=== PATIENT | female | born 1935 | race Caucasian/White ===

== ENCOUNTER 2018-12-22 11:35 | Emergency (ER) | payer MEDICARE ==
[~2018-12-22] VITALS: Ht 152.4 cm; Wt 110.0 kg
[2018-12-22 12:05] LABS: BASOPHILS # (AUTO) 0.1 X10'3 (0-0.2); BASOPHILS % (AUTO) 0.9 % (0-1); EOSINOPHILS % (AUTO) 0.1 % (0-6); HEMATOCRIT 42.9 % (35.0-45.0); HEMOGLOBIN 14.2 g/dl (12.0-16.0); LYMPHOCYTES # (AUTO) 0.8 X10'3 (1.1-4.8); LYMPHOCYTES % (AUTO) 10.9 % (21-51); MEAN CORPUSCULAR HEMOGLOBIN 28.5 PG (27.0-31.0); MEAN CORPUSCULAR HGB CONC 33.1 g/dL (33.0-36.5); MEAN CORPUSCULAR VOLUME 86.1 FL (78-98); MEAN PLATELET VOLUME 7.3 FL (7.4-10.4); MONOCYTES # (AUTO) 0.6 X10'3 (0-0.9); MONOCYTES % (AUTO) 7.8 % (2-12); NEUTROPHILS # (AUTO) 5.9 X10'3 (1.8-7.7); NEUTROPHILS % (AUTO) 80.3 % (42-75); PLATELET COUNT 201 X10'3 (140-440); RED BLOOD COUNT 4.99 X10'6 (4.20-5.60); RED CELL DISTRIBUTION WIDTH 14.6 % (11.5-14.5); WHITE BLOOD COUNT 7.4 X10'3 (4.5-11.0)
[2018-12-22] MEDS ORDERED: normal saline 1000ML IV soln IVB ONE (12:05)
[2018-12-22] MEDS ORDERED: ondansetron/PF 4mg/2ml inj IV ONE (12:05)
[2018-12-22 12:16] LABS: INR 1.1 INR; PROTHROMBIN TIME 11.3 SECONDS (9.0-12.0)
[2018-12-22 12:18] LABS: ALANINE AMINOTRANSFERASE 20 U/L (12-78); ALBUMIN 3.6 G/DL (3.4-5.0); ALBUMIN/GLOBULIN RATIO 0.9 (1.1-1.5); ALKALINE PHOSPHATASE 68 IU/L (46-116); ANION GAP 11 (8-16); ASPARTATE AMINO TRANSFERASE 18 U/L (10-37); BILIRUBIN,TOTAL 1.4 MG/DL (0.1-1.0); BLOOD UREA NITROGEN 16 MG/DL (7-18); CALCIUM 9.2 MG/DL (8.5-10.1); CHLORIDE 100 MMOL/L (99-107); CREATININE 0.94 MG/DL (0.40-0.90); GLUCOSE 244 MG/DL (70-104); POTASSIUM 4.5 MMOL/L (3.5-5.1); SODIUM 135 MMOL/L (135-145); TOTAL CARBON DIOXIDE 24.4 MMOL/L (24-32); TOTAL PROTEIN 7.8 G/DL (6.4-8.2); eGFR 57 ML/MIN
[2018-12-22] MEDS ORDERED: morphine 4 MG/ML inj SYRINge IV ONE ×2 (12:25→13:20)
--- NOTE | 2018-12-22 13:02 | NUR ---
BACK FROM CT, FLUID BOLUS RESUMED.
--- NOTE | 2018-12-22 13:07 | NUR ---
PT STATED UNABLE TO GIVE UA AT THIS TIME. EDUCATED ABOUT IMPORTANCE.
--- NOTE | 2018-12-22 13:17 | NUR ---
DR VO INFORMED PT STILL HAVING PAIN, RECEIVED VERBAL ORDERS FOR 4 MG IV MORPHINE AND 15 MG IV TORADOL ONCE NOW.
[2018-12-22] MEDS ORDERED: ketorolac tromethamine 15mg/ml inj. IV ONE (13:20)
[2018-12-22 13:34] VITALS: BP 159/65
[2018-12-22] MEDS ORDERED: proCHLORperazine 10 MG/2 ml inj IV ONE (13:40)
--- NOTE | 2018-12-22 13:40 | NUR ---
PT REPORTS 8/10 PAIN ADN STILL HAVING SOME NAUSEA, DR VO AT BEDSIDE WHEM MEDICATING PT WITH TORADOL AND WILL PUT ORDERS FOR OTHER NAUSEA MED, PT WANTS TO TRY TORADOL FIRST AND THEN HAVE OTHER DOSE OF MORPHINE IF PAIN PERSISTS.
[2018-12-22 13:47] LABS: CLARITY,URINE CLOUDY (Clear); COLOR,URINE YELLOW (Yellow); GLUCOSE, URINE 250 mg/dl (Neg); KETONES,URINE >=80 mg/dl (Neg); LEUKOCYTE ESTERASE ,URINE NEGATIVE (Neg); NITRITES, URINE NEGATIVE (Neg); OCCULT BLOOD,URINE LARGE (Neg); PROTEIN,URINE 30 mg/dl (Neg); UROBILINOGEN,URINE 0.2 E.U/dL (0.2-1.0)
[2018-12-22 13:50] LABS: UA COLLECTION TYPE CLN CATCH MIDSTREAM
[2018-12-22 13:53] LABS: MUCUS STRANDS MANY /LPF (Neg); SQUAMOUS EPITHELIAL CELL,UR MANY /LPF (FEW)
[2018-12-22 13:54] LABS: RBC,URINE 50-100 /HPF (0-2); WBC,URINE 0-4 /HPF (0-4)
[2018-12-22 13:55] LABS: BACTERIA,URINE FEW /HPF (Neg); TRANSITIONAL EPI CELLS,URINE FEW /HPF
[2018-12-22] MEDS ORDERED: ONDA4TAB12 PO (14:36)
[2018-12-22] MEDS ORDERED: HYDR-4383 PO (14:36)
== END 2018-12-22 15:15 | disposition home or self-care (01) ==
LOC: ER 11:36
DX: N13.2 Hydronephrosis with renal and ureteral calculous obstruction (principal); E86.0 Dehydration; R19.7 Diarrhea, unspecified; Z90.49 Acquired absence of other specified parts of digestive tract; Z98.890 Other specified postprocedural states; Z88.0 Allergy status to penicillin; Z88.2 Allergy status to sulfonamides; Z79.899 Other long term (current) drug therapy
CPT/HCPCS: 36415; 74176; 80053; 81001; 83605; 83690; 84145; 85025; 85610; 87040; 96361; 96374; 96375; 99284; J0780; J1885; J2270; J2405; J7030

== ENCOUNTER 2023-08-03 13:46 | Inpatient (IN) | payer MEDICARE, MEDICAID ==
[~2023-08-03] VITALS: Ht 152.4 cm; Wt 96.8 kg
[~2023-08-03 13:46] MED LIST: HYDR-4383 PO; ONDA4TAB12 PO
[2023-08-03 14:28] LABS: BASOPHILS # (AUTO) 0.1 X10'3 (0-0.2); BASOPHILS % (AUTO) 0.7 % (0-1); EOSINOPHILS # (AUTO) 0.1 X10'3 (0-0.9); EOSINOPHILS % (AUTO) 1.8 % (0-6); HEMATOCRIT 40.2 % (35.0-45.0); HEMOGLOBIN 13.1 g/dl (12.0-16.0); LYMPHOCYTES # (AUTO) 1.8 X10'3 (1.1-4.8); LYMPHOCYTES % (AUTO) 25.4 % (21-51); MEAN CORPUSCULAR HEMOGLOBIN 28.5 PG (27.0-31.0); MEAN CORPUSCULAR HGB CONC 32.5 g/dL (33.0-36.5); MEAN CORPUSCULAR VOLUME 87.9 FL (78-98); MEAN PLATELET VOLUME 7.8 FL (7.4-10.4); MONOCYTES # (AUTO) 0.4 X10'3 (0-0.9); MONOCYTES % (AUTO) 5.6 % (2-12); NEUTROPHILS # (AUTO) 4.7 X10'3 (1.8-7.7); NEUTROPHILS % (AUTO) 66.5 % (42-75); PLATELET COUNT 253 X10'3 (140-440); RED BLOOD COUNT 4.58 X10'6 (4.20-5.60); RED CELL DISTRIBUTION WIDTH 14.8 % (11.5-14.5); WHITE BLOOD COUNT 7.1 X10'3 (4.5-11.0)
[2023-08-03 14:42] LABS: ALANINE AMINOTRANSFERASE 8 U/L (12-78); ALBUMIN 3.3 G/DL (3.4-5.0); ALBUMIN/GLOBULIN RATIO 0.9 (1.1-1.5); ALKALINE PHOSPHATASE 76 IU/L (46-116); ANION GAP 7 (8-16); ASPARTATE AMINO TRANSFERASE 12 U/L (10-37); BILIRUBIN,TOTAL 0.8 MG/DL (0.1-1.0); BLOOD UREA NITROGEN 15 MG/DL (7-18); BUN/CREATININE RATIO 20.8 (10.0-20.0); CHLORIDE 105 MMOL/L (99-107); CREATININE 0.72 MG/DL (0.40-0.90); GLUCOSE 230 MG/DL (70-104); POTASSIUM 3.8 MMOL/L (3.5-5.1); SODIUM 143 MMOL/L (135-145); eCRCL 40 ML/MIN; eGFR 77 ML/MIN
[2023-08-03 14:51] LABS: MAGNESIUM 1.6 MG/DL (1.5-2.4); PRO BRAIN NATRIURETIC PEPTIDE 1024 PG/ML (0-450)
[2023-08-03] MEDS ORDERED: metoprolol tartrate 1mg/ml inj IV PRN (15:30)
[2023-08-03] MEDS ORDERED: acetaminophen 325mg tablet PO PRN ×2 (15:30)
[2023-08-03] MEDS ORDERED: potassium Cl 20 mEq SR tablet PO PRN ×2 (15:30)
[2023-08-03] MEDS ORDERED: aminophylline 250mg/10ml inj. IV PRN (15:30)
[2023-08-03] MEDS ORDERED: regadenoson 0.4mg/5ml syringe IV PRN (15:30)
[2023-08-03] MEDS ORDERED: HYDROcodone/acetaminophen 5mg/325mg tablet PO PRN (15:30)
[2023-08-03] MEDS ORDERED: potassium Cl 40MEQ/1/2NS 520ml 520 ML IV PRN (15:30)
[2023-08-03] MEDS ORDERED: magnesium Cl slow-release 64mg tablet PO PRN (15:30)
[2023-08-03] MEDS ORDERED: morphine 2 MG/ML inj. syringe IV PRN ×2 (15:30)
[2023-08-03] MEDS ORDERED: nitroGLYCERIN 0.4mg SUBLingual tab SL PRN (15:30)
[2023-08-03] MEDS ORDERED: magnesium 2GM in 50ml NS 50 ML IV PRN (15:30)
[2023-08-03] MEDS ORDERED: HYDROcodone/acetaminophen 10/325mg tab PO PRN (15:30)
[2023-08-03] MEDS ORDERED: magnesium 4gm in 100ml NS 100 ML IV PRN (15:30)
[2023-08-03] MEDS ORDERED: iohexol 350MG/ML 100ml bottle IV ONE (15:33)
[2023-08-03] MEDS: normal saline 1000ml 1,000 ML IV SCH (15:50)
--- NOTE | 2023-08-03 16:37 | NUR ---
stress test in am. npo after mn, no caffeine
[2023-08-03] MEDS ORDERED: PIOG30TA71 PO (18:01)
[2023-08-03] MEDS ORDERED: LEVO88TA7 PO (18:01)
[2023-08-03] MEDS ORDERED: ATOR10TA70 PO (18:01)
[2023-08-03] MEDS ORDERED: LISI30TA4 PO (18:01)
[2023-08-03] MEDS ORDERED: NITR0.4T48 (18:01)
[2023-08-03] MEDS: enoxaparin 40mg/0.4ml syringe SQ SCH (20:44)
[2023-08-03 20:55] VITALS: BP_SYST 140; BP_SYST 171; BP_DIAS 57; BP_DIAS 70; PULSE 70; RESP 14; TEMP 97.2; O2SAT 95
[2023-08-03] MEDS ORDERED: temazepam 15mg capsule PO PRN (21:00)
[2023-08-03 22:00] VITALS: BP 157/62; PULSE 74; RESP 12; TEMP 97; O2SAT 97
[2023-08-03 22:51] VITALS: RESP 14; O2SAT 94
[2023-08-04] VITALS (20 sets, daily range): BP systolic 132–173; BP diastolic 6–79; PULSE 69–93; RESP 12–24; TEMP 97–97.7; O2SAT 97–100
--- NOTE | 2023-08-04 06:26 | NUR ---
Problems reprioritized. Patient report given, questions answered & plan of care reviewed with
--- NOTE | 2023-08-04 06:58 | NUR ---
Patient in room PCU 3027. I have received report from Natalie PAZ and had the opportunity to ask questions and assume patient care.
[2023-08-04 08:00] LABS: BASOPHILS # (AUTO) 0.1 X10'3 (0-0.2); BASOPHILS % (AUTO) 1.2 % (0-1); EOSINOPHILS # (AUTO) 0.2 X10'3 (0-0.9); EOSINOPHILS % (AUTO) 2.8 % (0-6); HEMATOCRIT 38.5 % (35.0-45.0); HEMOGLOBIN 12.7 g/dl (12.0-16.0); LYMPHOCYTES # (AUTO) 1.7 X10'3 (1.1-4.8); LYMPHOCYTES % (AUTO) 26.5 % (21-51); MEAN CORPUSCULAR HEMOGLOBIN 28.8 PG (27.0-31.0); MEAN CORPUSCULAR VOLUME 87.4 FL (78-98); MEAN PLATELET VOLUME 8.7 FL (7.4-10.4); MONOCYTES # (AUTO) 0.5 X10'3 (0-0.9); MONOCYTES % (AUTO) 7.7 % (2-12); NEUTROPHILS # (AUTO) 3.9 X10'3 (1.8-7.7); NEUTROPHILS % (AUTO) 61.8 % (42-75); PLATELET COUNT 227 X10'3 (140-440); RED BLOOD COUNT 4.41 X10'6 (4.20-5.60); RED CELL DISTRIBUTION WIDTH 14.7 % (11.5-14.5)
[2023-08-04] MEDS ORDERED: hydrocortisone sod succ/PF 250mg/2ml inj. IV ONE (11:35)
[2023-08-04] MEDS ORDERED: prednisone 10mg tablet PO STA (11:35)
--- NOTE | 2023-08-04 11:40 | NUR ---
ORDERS FOR 60MG PO PREDNISONE STAT, 125MG IV HYDROCORTISONE, NORMAL SALINE AT 100ML/HR AND HEART CATH PUT IN PER DR. VERDE. Addendum: 08/04/23 at 1141 by Airam Staley RN PATIENT ALSO HAS ALLERGY TO IODINE AND ADDED THAT TO THE ALLERGIES.
[2023-08-04] MEDS ORDERED: hydrocortisone sod succ/PF 100mg/2ml inj. IV ONE (11:50)
[2023-08-04] MEDS ORDERED: atorvastatin 10mg tablet PO SCH (12:04)
[2023-08-04] MEDS ORDERED: lisinopril 10 MG tablet PO SCH (12:04)
[2023-08-04] MEDS: levoTHYROXINE 88mcg tablet PO SCH (12:20)
[2023-08-04 13:00] LABS: ALANINE AMINOTRANSFERASE 11 U/L (12-78); ALBUMIN 3.3 G/DL (3.4-5.0); ALBUMIN/GLOBULIN RATIO 0.9 (1.1-1.5); ALKALINE PHOSPHATASE 70 IU/L (46-116); ANION GAP 8 (8-16); ASPARTATE AMINO TRANSFERASE 12 U/L (10-37); BILIRUBIN,TOTAL 1.4 MG/DL (0.1-1.0); BLOOD UREA NITROGEN 9 MG/DL (7-18); BUN/CREATININE RATIO 13.6 (10.0-20.0); CALCIUM 8.8 MG/DL (8.5-10.1); CHLORIDE 105 MMOL/L (99-107); CREATININE 0.66 MG/DL (0.40-0.90); GLUCOSE 156 MG/DL (70-104); POTASSIUM 3.5 MMOL/L (3.5-5.1); SODIUM 140 MMOL/L (135-145); TOTAL CARBON DIOXIDE 27.5 MMOL/L (24-32); TOTAL PROTEIN 7.1 G/DL (6.4-8.2); eCRCL 43 ML/MIN; eGFR 85 ML/MIN
[2023-08-04] MEDS ORDERED: LIDOcaine 1% (10mg/ml)w/preservative inj. 20ml MDV ONE (15:17)
[2023-08-04] MEDS ORDERED: iohexol 350MG/ML 100ml bottle IV ONE ×2 (15:17→16:57)
[2023-08-04] MEDS ORDERED: fentaNYL/PF 50MCG/1 ML 2ML syringe ONE (15:17)
[2023-08-04] MEDS ORDERED: iohexol 350 MG/ML 50ML vial IV ONE ×3 (15:17→17:20)
[2023-08-04] MEDS ORDERED: midazolam 1 mg/ML 2ml injection ONE ×2 (15:17→17:05)
[2023-08-04] MEDS ORDERED: diphenhydrAMINE 50 mg/ml inj ONE (15:52)
[2023-08-04] MEDS ORDERED: hydrALAZINE 20mg/ml inj. IV ONE (16:04)
[2023-08-04] MEDS ORDERED: nitroGLYCERIN 500mcg/5mL D5W 0 ML IV ONE (16:06)
--- NOTE | 2023-08-04 16:20 | NUR ---
ORDERS FOR RESUSCITATION STATUS CHANGED FROM DNR TO FULL CODE PER DR. VERDE.
[2023-08-04] MEDS ORDERED: heparin 25,000 UNIT/250ml bag 250 ML IV ONE (16:35)
[2023-08-04] MEDS ORDERED: heparin 1,000unit/ml 10ml vial 10 ML ONE (16:35)
[2023-08-04] MEDS ORDERED: heparin 1,000 UNITS/NS 500ml 500 ML ONE (17:03)
[2023-08-04] MEDS ORDERED: ondansetron/PF 4mg/2ml inj ONE (17:18)
[2023-08-04] MEDS ORDERED: ticagrelor 90mg tablet ONE (17:24)
[2023-08-04] MEDS: normal saline 1000ml 1,000 ML IV SCH (17:38)
[2023-08-04] MEDS ORDERED: HYDROmorphone 1 mg/ml syringe ONE (17:47)
--- NOTE | 2023-08-04 17:53 | NUR ---
patient went for stress test and cardiac cath. Per report taken to ICU following procedure
[2023-08-04] MEDS ORDERED: aspirin 325mg tablet ONE (17:55)
[2023-08-04] MEDS ORDERED: proCHLORperazine 10 MG/2 ml inj IV PRN (19:15)
[2023-08-04] MEDS ORDERED: HYDROcodone/acetaminophen 10/325mg tab PO PRN (19:15)
[2023-08-04] MEDS ORDERED: nitroGLYCERIN 0.4mg SUBLingual tab SL PRN (19:15)
[2023-08-04] MEDS ORDERED: OXAZEpam 15mg capsule PO PRN (19:15)
[2023-08-04] MEDS ORDERED: acetaminophen 325mg tablet PO PRN ×2 (19:15)
[2023-08-04] MEDS ORDERED: magnesium hydroxide 30ml (MOM) UD suspension PO PRN (19:15)
[2023-08-04] MEDS ORDERED: cyclobenzaprine 10mg tablet PO PRN (19:15)
[2023-08-04] MEDS ORDERED: HYDROmorphone inj. 0.5 MG/0.5 ML DISP.SYRIN IV PRN (19:20)
--- NOTE | 2023-08-04 19:40 | NUR ---
I have received report and assumed care of pt, pt Pt placed on monitor assessment complete, FemoStop in place to right groin, no hematoma noted bruising to left lateral hip. family at bedside.
[2023-08-04] MEDS: ticagrelor 90mg tablet PO SCH (20:32)
[2023-08-04] MEDS: enoxaparin 40mg/0.4ml syringe SQ SCH (20:33)
[2023-08-04] MEDS: HYDROcodone/acetaminophen 10/325mg tab PO PRN (20:33)
[2023-08-04] MEDS: docusate sod 100mg capsule PO SCH (20:34)
[2023-08-04] MEDS: metoprolol tartrate 12.5mg (1/2 tablet) PO SCH (20:37)
[2023-08-04] MEDS: ondansetron/PF 4mg/2ml inj IV PRN (21:13)
--- NOTE | 2023-08-04 21:45 | NUR ---
flexeril given for back cramping, norco given for genrised pain.
[2023-08-05] VITALS (24 sets, daily range): BP systolic 93–176; BP diastolic 35–74; PULSE 59–77; RESP 10–21; TEMP 99; O2SAT 86–98
[2023-08-05] MEDS: normal saline 1000ml 1,000 ML IV SCH ×2 (03:38→13:38)
--- NOTE | 2023-08-05 04:02 | NUR ---
FemoStop removed groin area bruised but no hematoma noted
[2023-08-05] MEDS: ondansetron/PF 4mg/2ml inj IV PRN (04:59)
[2023-08-05] MEDS: HYDROcodone/acetaminophen 10/325mg tab PO PRN (05:00)
[2023-08-05 06:22] LABS: BASOPHILS % (AUTO) 0.2 % (0-1); EOSINOPHILS % (AUTO) 0 % (0-6); HEMATOCRIT 37.7 % (35.0-45.0); HEMOGLOBIN 12.4 g/dl (12.0-16.0); LYMPHOCYTES # (AUTO) 0.7 X10'3 (1.1-4.8); LYMPHOCYTES % (AUTO) 6.9 % (21-51); MEAN CORPUSCULAR HEMOGLOBIN 28.9 PG (27.0-31.0); MEAN CORPUSCULAR VOLUME 87.7 FL (78-98); MONOCYTES # (AUTO) 0.8 X10'3 (0-0.9); MONOCYTES % (AUTO) 7.5 % (2-12); NEUTROPHILS # (AUTO) 9.1 X10'3 (1.8-7.7); NEUTROPHILS % (AUTO) 85.4 % (42-75); PLATELET COUNT 267 X10'3 (140-440); RED BLOOD COUNT 4.29 X10'6 (4.20-5.60); RED CELL DISTRIBUTION WIDTH 14.8 % (11.5-14.5); WHITE BLOOD COUNT 10.6 X10'3 (4.5-11.0)
[2023-08-05 06:41] LABS: ALANINE AMINOTRANSFERASE 14 U/L (12-78); ALBUMIN 3.3 G/DL (3.4-5.0); ALBUMIN/GLOBULIN RATIO 0.9 (1.1-1.5); ALKALINE PHOSPHATASE 67 IU/L (46-116); ANION GAP 7 (8-16); ASPARTATE AMINO TRANSFERASE 16 U/L (10-37); BILIRUBIN,TOTAL 1.5 MG/DL (0.1-1.0); BLOOD UREA NITROGEN 15 MG/DL (7-18); BUN/CREATININE RATIO 17.6 (10.0-20.0); CALCIUM 8.5 MG/DL (8.5-10.1); CHLORIDE 105 MMOL/L (99-107); CREATININE 0.85 MG/DL (0.40-0.90); GLUCOSE 195 MG/DL (70-104); POTASSIUM 3.6 MMOL/L (3.5-5.1); SODIUM 139 MMOL/L (135-145); TOTAL CARBON DIOXIDE 26.9 MMOL/L (24-32); TOTAL PROTEIN 6.9 G/DL (6.4-8.2); eCRCL 33 ML/MIN; eGFR 63 ML/MIN
[2023-08-05] MEDS: levoTHYROXINE 88mcg tablet PO SCH (07:38)
[2023-08-05] MEDS: aspirin 81mg tab.chew PO SCH (08:50)
[2023-08-05] MEDS: ticagrelor 90mg tablet PO SCH ×2 (08:51→20:17)
[2023-08-05] MEDS: docusate sod 100mg capsule PO SCH ×2 (08:52→20:17)
[2023-08-05] MEDS: lisinopril 10 MG tablet PO SCH (08:52)
[2023-08-05] MEDS: metoprolol tartrate 12.5mg (1/2 tablet) PO SCH ×2 (08:52→20:19)
[2023-08-05] MEDS: atorvastatin 20mg tablet PO SCH (08:53)
[2023-08-05] MEDS: enoxaparin 40mg/0.4ml syringe SQ SCH (20:20)
[2023-08-05] MEDS ORDERED: insulin Lispro (HumaLOG) vial - multi-dose SQ SCH (20:40)
[2023-08-05] MEDS ORDERED: insulin glargine (Lantus) pen - multi-dose SQ SCH (21:00)
[2023-08-06] VITALS (9 sets, daily range): BP systolic 105–158; BP diastolic 40–63; PULSE 59–77; RESP 12–21; TEMP 97.7–98.1; O2SAT 93–100
--- NOTE | 2023-08-06 05:00 | NUR ---
Patient in room PCU 3024. I have received report from Nathaly AUTOM[employer] PRESS OPERATOR and had the opportunity to ask questions and assume patient care.
--- NOTE | 2023-08-06 05:00 | NUR ---
Report called to [place] on Tele. Opportunity for questions provided, all questions answered. Verbalizes understanding of info given. Pt transferred to Tele with monitor, RN, and IV, with all belongings
--- NOTE | 2023-08-06 06:00 | NUR ---
Problems reprioritized. Patient report given, questions answered & plan of care reviewed with Kee PAZ
--- NOTE | 2023-08-06 06:30 | NUR ---
Patient in room PCU 3024. I have received report from Aleta PAZ and had the opportunity to ask questions and assume patient care.
[2023-08-06 07:32] LABS: BASOPHILS % (AUTO) 0.4 % (0-1); EOSINOPHILS # (AUTO) 0.2 X10'3 (0-0.9); HEMATOCRIT 32.3 % (35.0-45.0); HEMOGLOBIN 10.8 g/dl (12.0-16.0); LYMPHOCYTES # (AUTO) 1.6 X10'3 (1.1-4.8); LYMPHOCYTES % (AUTO) 17.2 % (21-51); MEAN CORPUSCULAR HEMOGLOBIN 29.2 PG (27.0-31.0); MEAN CORPUSCULAR HGB CONC 33.4 g/dL (33.0-36.5); MEAN CORPUSCULAR VOLUME 87.4 FL (78-98); MEAN PLATELET VOLUME 7.9 FL (7.4-10.4); MONOCYTES # (AUTO) 0.8 X10'3 (0-0.9); MONOCYTES % (AUTO) 8.6 % (2-12); NEUTROPHILS # (AUTO) 6.5 X10'3 (1.8-7.7); NEUTROPHILS % (AUTO) 71.8 % (42-75); PLATELET COUNT 193 X10'3 (140-440); RED CELL DISTRIBUTION WIDTH 14.6 % (11.5-14.5); WHITE BLOOD COUNT 9.1 X10'3 (4.5-11.0)
[2023-08-06 07:49] LABS: ALANINE AMINOTRANSFERASE 13 U/L (12-78); ALBUMIN 2.9 G/DL (3.4-5.0); ALBUMIN/GLOBULIN RATIO 0.9 (1.1-1.5); ALKALINE PHOSPHATASE 58 IU/L (46-116); ANION GAP 7 (8-16); ASPARTATE AMINO TRANSFERASE 17 U/L (10-37); BILIRUBIN,TOTAL 1.6 MG/DL (0.1-1.0); BLOOD UREA NITROGEN 24 MG/DL (7-18); BUN/CREATININE RATIO 28.9 (10.0-20.0); CALCIUM 8.4 MG/DL (8.5-10.1); CHLORIDE 105 MMOL/L (99-107); CREATININE 0.83 MG/DL (0.40-0.90); GLUCOSE 133 MG/DL (70-104); POTASSIUM 3.4 MMOL/L (3.5-5.1); SODIUM 139 MMOL/L (135-145); TOTAL CARBON DIOXIDE 26.8 MMOL/L (24-32); TOTAL PROTEIN 6.1 G/DL (6.4-8.2); eCRCL 34 ML/MIN; eGFR 65 ML/MIN
[2023-08-06] MEDS: docusate sod 100mg capsule PO SCH (08:00)
--- NOTE | 2023-08-06 08:35 | NUR ---
Per EMR pt with T2DM, well controlled for age with A1c 7.0%. DM education not warranted at this time. Will continue to follow. Addendum: 08/06/23 at [address] Amended: Links added.
[2023-08-06] MEDS: levoTHYROXINE 88mcg tablet PO SCH (08:45)
[2023-08-06] MEDS: metoprolol tartrate 12.5mg (1/2 tablet) PO SCH (08:46)
[2023-08-06] MEDS: aspirin 81mg tab.chew PO SCH (08:46)
[2023-08-06] MEDS: atorvastatin 20mg tablet PO SCH (08:47)
[2023-08-06] MEDS: ticagrelor 90mg tablet PO SCH (08:47)
[2023-08-06] MEDS: lisinopril 10 MG tablet PO SCH (08:48)
--- NOTE | 2023-08-06 13:31 | NUR ---
PAGER ID: [phone] MESSAGE: Lali [id number], Dr Duncan came by to the floor and asked about pt and seemingly said she can be good to go. [phone]
[2023-08-06] MEDS ORDERED: ASPI81TA53 PO (14:00)
[2023-08-06] MEDS ORDERED: LOP12.5T PO (14:00)
[2023-08-06] MEDS ORDERED: TICA90TA PO (14:00)
[2023-08-06] MEDS ORDERED: ATOR20TA66 PO (14:00)
[2023-08-06] MEDS ORDERED: LISI10TA27 PO (14:00)
[2023-08-06] MEDS ORDERED: METF-1203 PO (14:01)
--- NOTE | 2023-08-06 16:59 | NUR ---
Pt was DC'd as per Dr's orders. Pt was unhooked from all IV and tele. Pt was educated at bedside along with family, all questions were answered. Pt will make follow up appointments and pt had family bring their blood thinner for their placed stent. Pt gathered all belongings and took with them. Pt was wheeled down to lobby in wheelchair by staff. Pt left in a private vehicle destined for home.
== END 2023-08-06 16:50 | disposition home or self-care (01) | DRG 321 ==
LOC: ER 13:47 → ED HOLD 15:35 → PCU 3S 21:00 → ICU 2S 08-04 17:00 → PCU 3S 08-06 05:10
PROVIDERS: ADMIT Internal Medicine; ATTEND Internal Medicine
PROC: B32T1ZZ Computerized Tomography (CT Scan) of Left Pulmonary Artery using Low Osmolar Contrast (ICD-10-PCS; 2023-08-03)
PROC: B3201ZZ Computerized Tomography (CT Scan) of Thoracic Aorta using Low Osmolar Contrast (ICD-10-PCS; 2023-08-03)
PROC: B32S1ZZ Computerized Tomography (CT Scan) of Right Pulmonary Artery using Low Osmolar Contrast (ICD-10-PCS; 2023-08-03)
PROC: 4A023N7 Measurement of Cardiac Sampling and Pressure, Left Heart, Percutaneous Approach (ICD-10-PCS; principal; 2023-08-04)
PROC: 027034Z Dilation of Coronary Artery, One Artery with Drug-eluting Intraluminal Device, Percutaneous Approach (ICD-10-PCS; 2023-08-04)
PROC: B41F1ZZ Fluoroscopy of Right Lower Extremity Arteries using Low Osmolar Contrast (ICD-10-PCS; 2023-08-04)
PROC: B2151ZZ Fluoroscopy of Left Heart using Low Osmolar Contrast (ICD-10-PCS; 2023-08-04)
PROC: B31N1ZZ Fluoroscopy of Other Upper Arteries using Low Osmolar Contrast (ICD-10-PCS; 2023-08-04)
PROC: 4A02XM4 Measurement of Cardiac Total Activity, External Approach (ICD-10-PCS; 2023-08-04)
PROC: B2111ZZ Fluoroscopy of Multiple Coronary Arteries using Low Osmolar Contrast (ICD-10-PCS; 2023-08-04)
PROC: 3E033HZ Introduction of Radioactive Substance into Peripheral Vein, Percutaneous Approach (ICD-10-PCS; 2023-08-04)
PROC: B41C1ZZ Fluoroscopy of Pelvic Arteries using Low Osmolar Contrast (ICD-10-PCS; 2023-08-04)
DX: I20.89 Other forms of angina pectoris (principal); I50.41 Acute combined systolic (congestive) and diastolic (congestive) heart failure; I25.5 Ischemic cardiomyopathy; E11.9 Type 2 diabetes mellitus without complications; I44.7 Left bundle-branch block, unspecified; E03.9 Hypothyroidism, unspecified; I11.0 Hypertensive heart disease with heart failure; G89.29 Other chronic pain; F10.90 Alcohol use, unspecified, uncomplicated; Z66 Do not resuscitate; E78.5 Hyperlipidemia, unspecified; Z79.02 Long term (current) use of antithrombotics/antiplatelets; Z79.82 Long term (current) use of aspirin; Z79.84 Long term (current) use of oral hypoglycemic drugs; Z90.49 Acquired absence of other specified parts of digestive tract; Z79.899 Other long term (current) drug therapy; Z88.2 Allergy status to sulfonamides; Z88.0 Allergy status to penicillin; Z91.041 Radiographic dye allergy status
CPT/HCPCS: 93306; 93458; 99285; C9600; 36415; 71045; 71275; 78452; 80053; 82948; 83036; 83735; 83880; 84484; 85025; 85347; 85651; 86140; 87081; 93005; 93017; 97110; 97161; 97530; 99152; 99153; A6258; A6449; A9500; C1751; C1760; C1769; C1874; C1894; G0378; J0280; J0360; J1170; J1200; J1644; J1650; J1720; J1815; J2250; J2405; J2785; J3010; J3490; J7030; J7512; Q9967

== ENCOUNTER 2023-10-06 21:25 | Inpatient (IN) | payer MEDICARE, MEDICAID ==
[~2023-10-06] VITALS: Ht 165.1 cm; Wt 93.0 kg
[~2023-10-06 21:25] MED LIST changes: +ASPI81TA53 PO; +ATOR20TA66 PO; -HYDR-4383 PO; +LEVO88TA7 PO; +LISI10TA27 PO; +LOP12.5T PO; +NITR0.4T48; -ONDA4TAB12 PO; +TICA90TA PO
[2023-10-06 22:01] LABS: HEMATOCRIT 39.6 % (35.0-45.0); MEAN CORPUSCULAR HGB CONC 33.7 g/dL (33.0-36.5)
[2023-10-06 22:03] LABS: BASOPHILS % (AUTO) 0.5 % (0-1); EOSINOPHILS # (AUTO) 0.2 X10'3 (0-0.9); EOSINOPHILS % (AUTO) 1.8 % (0-6); HEMOGLOBIN 13.3 g/dl (12.0-16.0); LYMPHOCYTES # (AUTO) 2.2 X10'3 (1.1-4.8); LYMPHOCYTES % (AUTO) 25.4 % (21-51); MEAN CORPUSCULAR HEMOGLOBIN 28.9 PG (27.0-31.0); MEAN CORPUSCULAR VOLUME 85.7 FL (78-98); MEAN PLATELET VOLUME 7.9 FL (7.4-10.4); MONOCYTES # (AUTO) 0.7 X10'3 (0-0.9); MONOCYTES % (AUTO) 8.1 % (2-12); NEUTROPHILS # (AUTO) 5.5 X10'3 (1.8-7.7); NEUTROPHILS % (AUTO) 64.2 % (42-75); PLATELET COUNT 282 X10'3 (140-440); RED BLOOD COUNT 4.61 X10'6 (4.20-5.60); RED CELL DISTRIBUTION WIDTH 14.7 % (11.5-14.5); WHITE BLOOD COUNT 8.6 X10'3 (4.5-11.0)
[2023-10-06 22:23] LABS: ALANINE AMINOTRANSFERASE 20 U/L (12-78); ALBUMIN 3.6 G/DL (3.4-5.0); ALBUMIN/GLOBULIN RATIO 0.9 (1.1-1.5); ALKALINE PHOSPHATASE 84 IU/L (46-116); ANION GAP 11 (8-16); ASPARTATE AMINO TRANSFERASE 15 U/L (10-37); BILIRUBIN,TOTAL 1.8 MG/DL (0.1-1.0); BLOOD UREA NITROGEN 16 MG/DL (7-18); BUN/CREATININE RATIO 20.5 (10.0-20.0); CALCIUM 9.2 MG/DL (8.5-10.1); CHLORIDE 104 MMOL/L (99-107); CREATININE 0.78 MG/DL (0.40-0.90); GLUCOSE 249 MG/DL (70-104); POTASSIUM 3.5 MMOL/L (3.5-5.1); SODIUM 140 MMOL/L (135-145); TOTAL CARBON DIOXIDE 25.3 MMOL/L (24-32); TOTAL PROTEIN 7.4 G/DL (6.4-8.2); eCRCL 46 ML/MIN; eGFR 70 ML/MIN
[2023-10-06 22:31] LABS: PRO BRAIN NATRIURETIC PEPTIDE 891 PG/ML (0-450)
[2023-10-06] MEDS ORDERED: aspirin 325mg tablet PO ONE (23:05)
[2023-10-06] MEDS ORDERED: heparin 25,000 UNIT/250ml bag 250 ML IV PRN (23:10)
[2023-10-06] MEDS ORDERED: heparin 10,000 units/1 ML INJ IV ONE ×2 (23:10→23:20)
[2023-10-06] MEDS ORDERED: heparin 10,000 units/1 ML INJ IV PRN (23:10)
[2023-10-06] MEDS ORDERED: acetaminophen 1,000mg/100ml IV 100 ML IV ONE (23:15)
[2023-10-06 23:24] LABS: APTT 27 SECONDS (22-32); INR 1.1 INR; PROTHROMBIN TIME 11.3 SECONDS (9.0-12.0)
[2023-10-06] MEDS ORDERED: ondansetron/PF 4mg/2ml inj IV PRN (23:40)
[2023-10-06] MEDS ORDERED: magnesium 4gm in 100ml NS 100 ML IV PRN (23:40)
[2023-10-06] MEDS ORDERED: acetaminophen 325mg tablet PO PRN ×2 (23:40)
[2023-10-06] MEDS ORDERED: HYDROcodone/acetaminophen 10/325mg tab PO PRN (23:40)
[2023-10-06] MEDS ORDERED: potassium Cl 40MEQ/1/2NS 520ml 520 ML IV PRN (23:40)
[2023-10-06] MEDS ORDERED: HYDROcodone/acetaminophen 5mg/325mg tablet PO PRN (23:40)
[2023-10-06] MEDS ORDERED: potassium Cl 20 mEq SR tablet PO PRN ×2 (23:40)
[2023-10-06] MEDS ORDERED: magnesium Cl slow-release 64mg tablet PO PRN (23:40)
[2023-10-06] MEDS ORDERED: morphine 2 MG/ML inj. syringe IV PRN ×2 (23:40)
[2023-10-06] MEDS ORDERED: magnesium 2GM in 50ml NS 50 ML IV PRN (23:40)
[2023-10-06] MEDS ORDERED: ticagrelor 90mg tablet PO SCH (23:45)
[2023-10-07] MEDS ORDERED: heparin 10,000 units/1 ML INJ IV PRN (01:30)
[2023-10-07] MEDS ORDERED: ROSU5TAB12 PO (01:46)
[2023-10-07] MEDS: heparin 25,000 UNIT/250ml bag 250 ML IV PRN (01:56)
[2023-10-07] MEDS ORDERED: insulin Lispro (HumaLOG) vial - multi-dose SQ SCH (02:45)
[2023-10-07] MEDS ORDERED: dextrose 50%-water 50ml dispensing syringe IV PRN ×2 (02:45)
[2023-10-07] MEDS ORDERED: MESSAGE TO PHARMACY PO ONE (02:45)
[2023-10-07] MEDS ORDERED: DEXTROSE 15 GM of carb/4 tabs (each vial/BOTTLE has 4 tablets) PO PRN ×2 (02:45)
[2023-10-07] MEDS ORDERED: glucagon, human recombinant 1mg kit SUBCUT PRN (02:45)
[2023-10-07 04:49] LABS: BASOPHILS # (AUTO) 0.1 X10'3 (0-0.2); BASOPHILS % (AUTO) 0.7 % (0-1); EOSINOPHILS # (AUTO) 0.1 X10'3 (0-0.9); EOSINOPHILS % (AUTO) 1.9 % (0-6); HEMATOCRIT 34.5 % (35.0-45.0); HEMOGLOBIN 11.8 g/dl (12.0-16.0); LYMPHOCYTES # (AUTO) 2.4 X10'3 (1.1-4.8); LYMPHOCYTES % (AUTO) 30.9 % (21-51); MEAN CORPUSCULAR HEMOGLOBIN 29.1 PG (27.0-31.0); MEAN CORPUSCULAR VOLUME 85.5 FL (78-98); MEAN PLATELET VOLUME 7.6 FL (7.4-10.4); MONOCYTES # (AUTO) 0.5 X10'3 (0-0.9); MONOCYTES % (AUTO) 6.2 % (2-12); NEUTROPHILS # (AUTO) 4.6 X10'3 (1.8-7.7); NEUTROPHILS % (AUTO) 60.3 % (42-75); PLATELET COUNT 217 X10'3 (140-440); RED BLOOD COUNT 4.04 X10'6 (4.20-5.60); RED CELL DISTRIBUTION WIDTH 14.5 % (11.5-14.5); WHITE BLOOD COUNT 7.7 X10'3 (4.5-11.0)
[2023-10-07 05:04] LABS: ALANINE AMINOTRANSFERASE 14 U/L (12-78); ALBUMIN 2.9 G/DL (3.4-5.0); ALBUMIN/GLOBULIN RATIO 0.9 (1.1-1.5); ALKALINE PHOSPHATASE 60 IU/L (46-116); ANION GAP 5 (8-16); ASPARTATE AMINO TRANSFERASE 43 U/L (10-37); BILIRUBIN,TOTAL 1.5 MG/DL (0.1-1.0); BLOOD UREA NITROGEN 12 MG/DL (7-18); BUN/CREATININE RATIO 18.5 (10.0-20.0); CALCIUM 8.5 MG/DL (8.5-10.1); CHLORIDE 107 MMOL/L (99-107); CREATININE 0.65 MG/DL (0.40-0.90); GLUCOSE 194 MG/DL (70-104); POTASSIUM 3.4 MMOL/L (3.5-5.1); SODIUM 140 MMOL/L (135-145); TOTAL CARBON DIOXIDE 28.2 MMOL/L (24-32); TOTAL PROTEIN 6.2 G/DL (6.4-8.2); eCRCL 55 ML/MIN; eGFR 86 ML/MIN
[2023-10-07 05:09] LABS: HEMOGLOBIN A1C 7.6 % (4.5-6.2)
[2023-10-07] MEDS ORDERED: atorvastatin 20mg tablet PO SCH (08:00)
[2023-10-07] MEDS ORDERED: lisinopril 10 MG tablet PO SCH (08:00)
[2023-10-07] MEDS ORDERED: metoprolol tartrate 12.5mg (1/2 tablet) PO SCH (08:00)
[2023-10-07] MEDS ORDERED: aspirin 81mg, enteric-coated 1 TAB TABLET.DR PO SCH (08:00)
[2023-10-07] MEDS ORDERED: prednisone 10mg tablet PO ONE (08:30)
[2023-10-07 08:35] LABS: THYROID STIMULATING HORMONE 0.56 ulU/ml (0.34-4.50)
[2023-10-07] MEDS: metoprolol tartrate 12.5mg (1/2 tablet) PO SCH ×2 (09:40→21:50)
[2023-10-07] MEDS: levoTHYROXINE 88mcg tablet PO SCH (09:40)
[2023-10-07] MEDS: aspirin 81mg tab.chew PO SCH (09:40)
[2023-10-07] MEDS: lisinopril 20mg tablet PO SCH (09:41)
[2023-10-07 09:59] LABS: CHOL/HDL RATIO 2.1 (0.00-4.99); CHOLESTEROL 92 MG/DL (0-200); HDL CHOLESTEROL 44 MG/DL (35-60); LDL CHOLESTEROL 35 MG/DL (50-100); TRIGLYCERIDES 100 MG/DL (20-135)
[2023-10-07] MEDS ORDERED: hydrocortisone sod succ/PF 250mg/2ml inj. IV ONE (16:05)
[2023-10-07] MEDS ORDERED: hydrocortisone sod succ/PF 100mg/2ml inj. IV ONE (16:20)
[2023-10-07 18:18] LABS: APTT 53 SECONDS (22-32)
[2023-10-07 18:31] LABS: PROTHROMBIN TIME 11.4 SECONDS (9.0-12.0)
[2023-10-07 18:32] LABS: INR 1.1 INR
[2023-10-07 20:30] VITALS: BP 136/65; PULSE 74; RESP 14; RESP 18; TEMP 98.1; O2SAT 98
[2023-10-07] MEDS ORDERED: insulin glargine (Lantus) pen - multi-dose SQ SCH (21:00)
[2023-10-07 22:00] VITALS: BP 150/71; PULSE 83; RESP 18; TEMP 97.4; O2SAT 100
[2023-10-08 02:00] VITALS: BP 150/45; PULSE 63; RESP 20; TEMP 97.6; O2SAT 96
[2023-10-08] MEDS: heparin 25,000 UNIT/250ml bag 250 ML IV PRN (04:30)
[2023-10-08 06:00] VITALS: BP 124/50; PULSE 61; RESP 20; TEMP 96.8; O2SAT 96
[2023-10-08 06:34] LABS: BASOPHILS # (AUTO) 0.1 X10'3 (0-0.2); BASOPHILS % (AUTO) 0.9 % (0-1); EOSINOPHILS # (AUTO) 0.2 X10'3 (0-0.9); EOSINOPHILS % (AUTO) 2.7 % (0-6); HEMATOCRIT 35.3 % (35.0-45.0); HEMOGLOBIN 11.8 g/dl (12.0-16.0); LYMPHOCYTES # (AUTO) 2.4 X10'3 (1.1-4.8); MEAN CORPUSCULAR HEMOGLOBIN 28.5 PG (27.0-31.0); MEAN CORPUSCULAR HGB CONC 33.6 g/dL (33.0-36.5); MEAN CORPUSCULAR VOLUME 85.1 FL (78-98); MEAN PLATELET VOLUME 7.9 FL (7.4-10.4); MONOCYTES # (AUTO) 0.5 X10'3 (0-0.9); MONOCYTES % (AUTO) 6.9 % (2-12); NEUTROPHILS # (AUTO) 4.5 X10'3 (1.8-7.7); NEUTROPHILS % (AUTO) 58.5 % (42-75); PLATELET COUNT 228 X10'3 (140-440); RED BLOOD COUNT 4.15 X10'6 (4.20-5.60); RED CELL DISTRIBUTION WIDTH 14.9 % (11.5-14.5); WHITE BLOOD COUNT 7.6 X10'3 (4.5-11.0)
[2023-10-08 06:57] LABS: ALANINE AMINOTRANSFERASE 16 U/L (12-78); ALBUMIN 2.6 G/DL (3.4-5.0); ALBUMIN/GLOBULIN RATIO 0.7 (1.1-1.5); ALKALINE PHOSPHATASE 55 IU/L (46-116); ANION GAP 8 (8-16); ASPARTATE AMINO TRANSFERASE 52 U/L (10-37); BILIRUBIN,TOTAL 1.4 MG/DL (0.1-1.0); BLOOD UREA NITROGEN 8 MG/DL (7-18); BUN/CREATININE RATIO 14.3 (10.0-20.0); CHLORIDE 107 MMOL/L (99-107); CREATININE 0.56 MG/DL (0.40-0.90); GLUCOSE 126 MG/DL (70-104); MAGNESIUM 1.6 MG/DL (1.5-2.4); PHOSPHORUS 3.3 MG/DL (2.3-4.5); POTASSIUM 3.5 MMOL/L (3.5-5.1); SODIUM 143 MMOL/L (135-145); TOTAL PROTEIN 6.1 G/DL (6.4-8.2); eCRCL 64 ML/MIN; eGFR > 90 ML/MIN
[2023-10-08] MEDS: metoprolol tartrate 12.5mg (1/2 tablet) PO SCH (07:38)
[2023-10-08] MEDS: aspirin 81mg tab.chew PO SCH (07:38)
[2023-10-08] MEDS: lisinopril 20mg tablet PO SCH (07:38)
[2023-10-08] MEDS: levoTHYROXINE 88mcg tablet PO SCH (07:39)
[2023-10-08] MEDS ORDERED: ROSUVASTATIN CALCIUM 5 MG TABLET PO SCH (08:00)
[2023-10-08 10:00] VITALS: BP 123/63; PULSE 56; RESP 21; TEMP 97.8; O2SAT 98
[2023-10-08] MEDS ORDERED: ISOS30TA84 PO (13:54)
== END 2023-10-08 15:50 | disposition home health service (06) | DRG 282 ==
LOC: ER 21:26 → ED HOLD 23:42 → PCU 3S 10-07 20:13
PROVIDERS: ADMIT Internal Medicine; ATTEND Family Medicine
DX: I21.4 Non-ST elevation (NSTEMI) myocardial infarction (principal); N18.2 Chronic kidney disease, stage 2 (mild); E11.22 Type 2 diabetes mellitus with diabetic chronic kidney disease; I25.10 Atherosclerotic heart disease of native coronary artery without angina pectoris; Z66 Do not resuscitate; G89.29 Other chronic pain; M54.50 Low back pain, unspecified; E78.00 Pure hypercholesterolemia, unspecified; I12.9 Hypertensive chronic kidney disease with stage 1 through stage 4 chronic kidney disease, or unspecified chronic kidney disease; Z90.49 Acquired absence of other specified parts of digestive tract; I25.2 Old myocardial infarction; Z88.8 Allergy status to other drugs, medicaments and biological substances; Z88.5 Allergy status to narcotic agent; Z88.2 Allergy status to sulfonamides; Z91.041 Radiographic dye allergy status; Z88.0 Allergy status to penicillin; Z91.013 Allergy to seafood; Z79.82 Long term (current) use of aspirin; Z79.899 Other long term (current) drug therapy; Z95.5 Presence of coronary angioplasty implant and graft; Z79.84 Long term (current) use of oral hypoglycemic drugs
CPT/HCPCS: 36415; 71045; 80053; 80061; 82948; 83036; 83735; 83880; 84100; 84443; 84484; 85025; 85610; 85730; 87081; 93005; 93308; 99285; G0378; J0131; J1644; J1815

== ENCOUNTER 2024-01-26 14:10 | Inpatient (IN) | payer MEDICARE, MEDICAID ==
[~2024-01-26] VITALS: Ht 165.1 cm; Wt 80.0 kg
[~2024-01-26 14:10] MED LIST changes: -ATOR20TA66 PO; +ISOS30TA84 PO; +ROSU5TAB12 PO
[2024-01-26] MEDS: metoclopramide 5 mg/ml inj IV ONE (15:49)
[2024-01-26] MEDS: diphenhydrAMINE 50 mg/ml inj IV ONE (15:49)
[2024-01-26 16:43] LABS: BASOPHILS % (AUTO) 0.2 % (0-1); EOSINOPHILS % (AUTO) 0.1 % (0-6); HEMATOCRIT 40.7 % (35.0-45.0); HEMOGLOBIN 13.3 g/dl (12.0-16.0); LYMPHOCYTES % (AUTO) 4.7 % (21-51); MEAN CORPUSCULAR HEMOGLOBIN 28.5 PG (27.0-31.0); MEAN CORPUSCULAR HGB CONC 32.7 g/dL (33.0-36.5); MEAN CORPUSCULAR VOLUME 87.3 FL (78-98); MEAN PLATELET VOLUME 8.1 FL (7.4-10.4); MONOCYTES % (AUTO) 4.9 % (2-12); NEUTROPHILS # (AUTO) 18.6 X10'3 (1.8-7.7); NEUTROPHILS % (AUTO) 90.1 % (42-75); PLATELET COUNT 261 X10'3 (140-440); RED BLOOD COUNT 4.66 X10'6 (4.20-5.60); RED CELL DISTRIBUTION WIDTH 15.4 % (11.5-14.5); WHITE BLOOD COUNT 20.7 X10'3 (4.5-11.0)
[2024-01-26 17:07] LABS: ALBUMIN 3.8 G/DL (3.4-5.0); ANION GAP 20 (8-16); BLOOD UREA NITROGEN 28 MG/DL (7-18); BUN/CREATININE RATIO 25.5 (10.0-20.0); CALCIUM 10.5 MG/DL (8.5-10.1); CHLORIDE 101 MMOL/L (99-107); GLUCOSE 239 MG/DL (70-104); LIPASE 16 U/L (16-77); POTASSIUM 3.7 MMOL/L (3.5-5.1); SODIUM 137 MMOL/L (135-145); TOTAL CARBON DIOXIDE 16.1 MMOL/L (24-32); eCRCL 26 ML/MIN; eGFR 47 ML/MIN
[2024-01-26] MEDS: nitroGLYCERIN 0.4mg SUBLingual tab SL PRN (18:52)
[2024-01-26] MEDS: normal saline 1000ml 1,000 ML IV ONE ×3 (20:13→23:55)
[2024-01-26] MEDS: normal saline 1000ml 1,000 ML IV SCH (20:13)
[2024-01-26] MEDS ORDERED: magnesium 2GM in 50ml NS 50 ML IV PRN (20:55)
[2024-01-26] MEDS ORDERED: magnesium hydroxide 30ml (MOM) UD suspension PO PRN (20:55)
[2024-01-26] MEDS ORDERED: mag hydrox/Alum hydrox/simeth 30ml oral suspension PO PRN (20:55)
[2024-01-26] MEDS ORDERED: potassium Cl 20 mEq SR tablet PO PRN (20:55)
[2024-01-26] MEDS ORDERED: magnesium Cl slow-release 64mg tablet PO PRN (20:55)
[2024-01-26] MEDS ORDERED: magnesium 4gm in 100ml NS 100 ML IV PRN (20:55)
[2024-01-26] MEDS ORDERED: acetaminophen 325mg tablet PO PRN (20:55)
[2024-01-26] MEDS ORDERED: potassium Cl 40MEQ/1/2NS 520ml 520 ML IV PRN (20:55)
[2024-01-26] MEDS ORDERED: DEXTROSE 15 GM of carb/4 tabs (each vial/BOTTLE has 4 tablets) PO PRN ×2 (21:05)
[2024-01-26] MEDS ORDERED: dextrose 50%-water 50ml dispensing syringe IV PRN ×2 (21:05)
[2024-01-26] MEDS ORDERED: glucagon, human recombinant 1mg kit SUBCUT PRN (21:05)
[2024-01-26 21:07] LABS: ALANINE AMINOTRANSFERASE 17 U/L (12-78); ALBUMIN 3.2 G/DL (3.4-5.0); ALBUMIN/GLOBULIN RATIO 0.8 (1.1-1.5); ASPARTATE AMINO TRANSFERASE 14 U/L (10-37); BILIRUBIN,DIRECT 0.3 MG/DL (0-0.3); BILIRUBIN,TOTAL 1.7 MG/DL (0.1-1.0); C-REACTIVE PROTEIN 0.56 MG/DL (0.0-0.5); MAGNESIUM 1.9 MG/DL (1.5-2.4); TOTAL PROTEIN 7.1 G/DL (6.4-8.2)
[2024-01-26 21:08] LABS: ALKALINE PHOSPHATASE 65 IU/L (46-116)
[2024-01-26] MEDS: morphine 2 MG/ML inj. syringe IV PRN ×2 (21:31→22:19)
[2024-01-26] MEDS: ondansetron/PF 4mg/2ml inj IV PRN (21:32)
[2024-01-26 21:54] LABS: ALBUMIN 3.4 G/DL (3.4-5.0); ANION GAP 14 (8-16); BLOOD UREA NITROGEN 26 MG/DL (7-18); BUN/CREATININE RATIO 24.3 (10.0-20.0); CALCIUM 9.3 MG/DL (8.5-10.1); CHLORIDE 105 MMOL/L (99-107); CREATININE 1.07 MG/DL (0.40-0.90); GLUCOSE 247 MG/DL (70-104); POTASSIUM 4.3 MMOL/L (3.5-5.1); SODIUM 142 MMOL/L (135-145); TOTAL CARBON DIOXIDE 22.9 MMOL/L (24-32); eCRCL 27 ML/MIN; eGFR 49 ML/MIN
[2024-01-26 21:56] LABS: HEMOGLOBIN A1C 7.9 % (4.5-6.2)
[2024-01-26] MEDS: CefTRIAXone/D5W-Rocephin 1gm 50 ML IV ONE (22:42)
[2024-01-27] VITALS (10 sets, daily range): BP systolic 103–130; BP diastolic 32–53; PULSE 69–93; RESP 10–19; TEMP 97.4–98.7; O2SAT 97–100
[2024-01-27] MEDS: heparin, porcine 5000 units/ml vial SQ SCH
[2024-01-27 00:34] LABS: ALBUMIN 3.1 G/DL (3.4-5.0); ANION GAP 18 (8-16); BLOOD UREA NITROGEN 24 MG/DL (7-18); BUN/CREATININE RATIO 22.6 (10.0-20.0); CALCIUM 8.8 MG/DL (8.5-10.1); CHLORIDE 106 MMOL/L (99-107); CREATININE 1.06 MG/DL (0.40-0.90); GLUCOSE 237 MG/DL (70-104); SODIUM 142 MMOL/L (135-145); eCRCL 27 ML/MIN; eGFR 49 ML/MIN
[2024-01-27] MEDS: aspirin 81mg, enteric-coated 1 TAB TABLET.DR PO ONE ×2 (00:41→00:42)
[2024-01-27] MEDS: pantoprazole 40 MG vial IV STA (00:41)
[2024-01-27] MEDS: metroNIDAZOLE-Flagyl 500mg/NS 100 ML IV SCH ×2 (01:31→09:00)
[2024-01-27] MEDS: heparin 10,000 units/1 ML INJ IV ONE (03:19)
[2024-01-27] MEDS: heparin 25,000 UNIT/250ml bag 250 ML IV PRN (03:21)
[2024-01-27] MEDS: MESSAGE TO NURSING IV ONE ×5 (03:42→21:10)
[2024-01-27] MEDS: levoTHYROXINE 88mcg tablet PO SCH (07:00)
[2024-01-27] MEDS: INSULIN LISPRO 100 UNIT/ML INSULN.PEN MULTI-DOSE SQ SCH (07:00)
[2024-01-27 07:20] LABS: BASOPHILS % (AUTO) 0.1 % (0-1); EOSINOPHILS % (AUTO) 0 % (0-6); HEMATOCRIT 33.8 % (35.0-45.0); HEMOGLOBIN 10.8 g/dl (12.0-16.0); LYMPHOCYTES # (AUTO) 1.4 X10'3 (1.1-4.8); LYMPHOCYTES % (AUTO) 8.3 % (21-51); MEAN CORPUSCULAR HEMOGLOBIN 28.2 PG (27.0-31.0); MEAN CORPUSCULAR VOLUME 87.9 FL (78-98); MEAN PLATELET VOLUME 8.1 FL (7.4-10.4); MONOCYTES # (AUTO) 0.9 X10'3 (0-0.9); MONOCYTES % (AUTO) 5.5 % (2-12); NEUTROPHILS # (AUTO) 14.2 X10'3 (1.8-7.7); NEUTROPHILS % (AUTO) 86.1 % (42-75); PLATELET COUNT 227 X10'3 (140-440); RED BLOOD COUNT 3.85 X10'6 (4.20-5.60); RED CELL DISTRIBUTION WIDTH 15.6 % (11.5-14.5); WHITE BLOOD COUNT 16.5 X10'3 (4.5-11.0)
[2024-01-27 07:36] LABS: INR 1.2 INR; PROTHROMBIN TIME 12.7 SECONDS (9.0-12.0)
[2024-01-27] MEDS: CefTRIAXone/D5W-Rocephin 1gm 50 ML IV SCH (08:00)
[2024-01-27] MEDS: K and/or MAG REPLACEMENT MC SCH (08:00)
[2024-01-27 08:17] LABS: APTT 75 SECONDS (22-32)
[2024-01-27] MEDS: metoprolol tartrate 12.5mg (1/2 tablet) PO SCH (08:33)
[2024-01-27] MEDS: ROSUVASTATIN CALCIUM 5 MG TABLET PO SCH (08:34)
[2024-01-27] MEDS: ticagrelor 90mg tablet PO SCH (08:34)
[2024-01-27] MEDS: aspirin 81mg tab.chew PO SCH (08:34)
[2024-01-27] MEDS: insulin glargine (Lantus) pen - multi-dose SQ SCH (21:00)
[2024-01-27] MEDS: levoFLOXACIN-Levaquin 500mg/D5 100 ML IV ONE (21:05)
[2024-01-28] VITALS (8 sets, daily range): BP systolic 101–118; BP diastolic 42–69; PULSE 63–79; RESP 12–20; TEMP 97.2–98.5; O2SAT 92–100
[2024-01-28 03:20] LABS: BASOPHILS # (AUTO) 0.1 X10'3 (0-0.2); BASOPHILS % (AUTO) 0.5 % (0-1); EOSINOPHILS # (AUTO) 0.1 X10'3 (0-0.9); EOSINOPHILS % (AUTO) 1.2 % (0-6); HEMATOCRIT 31.4 % (35.0-45.0); HEMOGLOBIN 10.3 g/dl (12.0-16.0); LYMPHOCYTES # (AUTO) 1.6 X10'3 (1.1-4.8); LYMPHOCYTES % (AUTO) 13.4 % (21-51); MEAN CORPUSCULAR HEMOGLOBIN 28.4 PG (27.0-31.0); MEAN CORPUSCULAR HGB CONC 32.7 g/dL (33.0-36.5); MEAN CORPUSCULAR VOLUME 86.9 FL (78-98); MEAN PLATELET VOLUME 8.1 FL (7.4-10.4); MONOCYTES # (AUTO) 0.8 X10'3 (0-0.9); MONOCYTES % (AUTO) 6.7 % (2-12); NEUTROPHILS # (AUTO) 9.2 X10'3 (1.8-7.7); NEUTROPHILS % (AUTO) 78.2 % (42-75); PLATELET COUNT 188 X10'3 (140-440); RED BLOOD COUNT 3.62 X10'6 (4.20-5.60); RED CELL DISTRIBUTION WIDTH 15.4 % (11.5-14.5); WHITE BLOOD COUNT 11.8 X10'3 (4.5-11.0)
[2024-01-28 03:32] LABS: ALANINE AMINOTRANSFERASE 18 U/L (12-78); ALBUMIN 2.5 G/DL (3.4-5.0); ALBUMIN/GLOBULIN RATIO 0.7 (1.1-1.5); ALKALINE PHOSPHATASE 50 IU/L (46-116); ANION GAP 7 (8-16); ASPARTATE AMINO TRANSFERASE 66 U/L (10-37); BILIRUBIN,TOTAL 1.1 MG/DL (0.1-1.0); BLOOD UREA NITROGEN 12 MG/DL (7-18); CALCIUM 7.9 MG/DL (8.5-10.1); CHLORIDE 113 MMOL/L (99-107); GLUCOSE 161 MG/DL (70-104); POTASSIUM 3.4 MMOL/L (3.5-5.1); SODIUM 141 MMOL/L (135-145); TOTAL CARBON DIOXIDE 20.9 MMOL/L (24-32); TOTAL PROTEIN 5.9 G/DL (6.4-8.2); eCRCL 45 ML/MIN; eGFR 68 ML/MIN
[2024-01-28] MEDS: MESSAGE TO NURSING IV ONE ×2 (04:27→18:10)
[2024-01-28] MEDS: isosorbide mononitrate 30mg tab.SR.24H PO SCH (08:17)
[2024-01-28] MEDS: levoFLOXACIN-Levaquin 500mg/D5 100 ML IV SCH (08:18)
[2024-01-28] MEDS: potassium Cl 20 mEq SR tablet PO PRN (11:03)
[2024-01-28] MEDS: heparin 10,000 units/1 ML INJ IV PRN (18:09)
[2024-01-29] MEDS: MESSAGE TO NURSING IV ONE ×2 (00:42→09:00)
[2024-01-29 07:09] VITALS: BP 109/53; PULSE 72; RESP 16; TEMP 97.8; O2SAT 98
[2024-01-29 07:15] LABS: BASOPHILS % (AUTO) 0.3 % (0-1); EOSINOPHILS # (AUTO) 0.2 X10'3 (0-0.9); EOSINOPHILS % (AUTO) 2.2 % (0-6); HEMATOCRIT 31.4 % (35.0-45.0); HEMOGLOBIN 10.2 g/dl (12.0-16.0); LYMPHOCYTES # (AUTO) 1.6 X10'3 (1.1-4.8); LYMPHOCYTES % (AUTO) 18.6 % (21-51); MEAN CORPUSCULAR HEMOGLOBIN 28.4 PG (27.0-31.0); MEAN CORPUSCULAR HGB CONC 32.5 g/dL (33.0-36.5); MEAN CORPUSCULAR VOLUME 87.3 FL (78-98); MEAN PLATELET VOLUME 8.2 FL (7.4-10.4); MONOCYTES # (AUTO) 0.5 X10'3 (0-0.9); MONOCYTES % (AUTO) 5.9 % (2-12); NEUTROPHILS # (AUTO) 6.4 X10'3 (1.8-7.7); PLATELET COUNT 202 X10'3 (140-440); RED BLOOD COUNT 3.59 X10'6 (4.20-5.60); RED CELL DISTRIBUTION WIDTH 15.6 % (11.5-14.5); WHITE BLOOD COUNT 8.8 X10'3 (4.5-11.0)
[2024-01-29 07:24] LABS: C DIFF ANTIGEN NEGATIVE (NEGATIVE); C DIFF SPECIMEN=DIARRHEA? ACCEPTABLE; C DIFFICILE TOXINS A&B NEGATIVE (Neg)
[2024-01-29] MEDS: levoFLOXACIN-Levaquin 250mg/D5 50 ML IV SCH (07:28)
[2024-01-29 07:44] LABS: ALANINE AMINOTRANSFERASE 14 U/L (12-78); ALBUMIN 2.6 G/DL (3.4-5.0); ALBUMIN/GLOBULIN RATIO 0.7 (1.1-1.5); ALKALINE PHOSPHATASE 49 IU/L (46-116); ANION GAP 12 (8-16); ASPARTATE AMINO TRANSFERASE 39 U/L (10-37); BILIRUBIN,TOTAL 1.1 MG/DL (0.1-1.0); BLOOD UREA NITROGEN 7 MG/DL (7-18); CALCIUM 8.3 MG/DL (8.5-10.1); CHLORIDE 113 MMOL/L (99-107); GLUCOSE 130 MG/DL (70-104); POTASSIUM 3.8 MMOL/L (3.5-5.1); SODIUM 142 MMOL/L (135-145); TOTAL CARBON DIOXIDE 17.4 MMOL/L (24-32); TOTAL PROTEIN 6.2 G/DL (6.4-8.2); eCRCL 51 ML/MIN; eGFR 79 ML/MIN
[2024-01-29 08:00] VITALS: RESP 16; O2SAT 93
[2024-01-29 09:18] LABS: ABG BASE EXCESS -8.2 mmol/L (-2.0-2.0); ABG HCO3 14.7 mmol/L (22.0-26.0); ABG OXYGEN SATURATION 98.1 % (94-97); ABG PH (T) 7.422 (7.350-7.450); ABG PO2 (T) 103.5 mmHg (75.0-100.0); ALLEN'S TEST POSITIVE; FCOHb 0.3 % (0.0-3.9); FHHb 1.9 % (0.0-5.0); FMetHb 0.3 % (0.0-1.5); FO2Hb 97.5 % (94-97); MODE ROOM AIR; PATIENT TEMPERATURE 36.6; TOTAL HEMOGLOBIN 10.9 G/dl (12.0-16.0)
[2024-01-29] MEDS: sodium bicarbonate (8.4%) inj. 100 MEQ in dextrose 5%-water 1,000 ML IV SCH (11:22)
[2024-01-29 11:52] VITALS: BP 120/53; PULSE 60; RESP 16; TEMP 97.7; O2SAT 98
[2024-01-29 17:25] VITALS: BP 125/56; PULSE 56; RESP 12; TEMP 98; O2SAT 98
[2024-01-29 17:56] LABS: BILIRUBIN,URINE SMALL (Neg); COLOR,URINE YELLOW (Yellow); GLUCOSE, URINE >=1000 mg/dl (Neg); KETONES,URINE 15 mg/dl (Neg); LEUKOCYTE ESTERASE ,URINE NEGATIVE (Neg); NITRITES, URINE NEGATIVE (Neg); OCCULT BLOOD,URINE NEGATIVE (Neg); PH,URINE 5.5 (4.8-8.0); PROTEIN,URINE NEGATIVE (Neg); UROBILINOGEN,URINE 0.2 E.U/dL (0.2-1.0)
[2024-01-29 17:59] LABS: CLARITY,URINE Slightly Cloudy (Clear); UA COLLECTION TYPE NON-SPECIFIED
[2024-01-29 18:00] VITALS: BP 129/60; PULSE 67; RESP 14; TEMP 97.8; O2SAT 99
[2024-01-29 18:05] LABS: BACTERIA,URINE FEW /HPF (Neg); MUCUS STRANDS FEW /LPF (Neg); RBC,URINE 0-2 /HPF (0-2); SQUAMOUS EPITHELIAL CELL,UR MANY /LPF (FEW); WBC,URINE 0-4 /HPF (0-4)
[2024-01-29 18:17] LABS: TOTAL PROTEIN,URINE RANDOM 22.9 MG/DL
[2024-01-29 22:00] VITALS: BP 113/53; PULSE 73; RESP 13; TEMP 98.9; O2SAT 94
[2024-01-30] VITALS (8 sets, daily range): BP systolic 108–143; BP diastolic 34–58; PULSE 58–74; RESP 17–25; TEMP 98–98.6; O2SAT 96–100
[2024-01-30] MEDS: metroNIDAZOLE 500mg tablet PO SCH (00:01)
[2024-01-30] MEDS: metoclopramide 5 mg/ml inj IV PRN (06:01)
[2024-01-30 06:59] LABS: BASOPHILS % (AUTO) 0.7 % (0-1); EOSINOPHILS # (AUTO) 0.1 X10'3 (0-0.9); EOSINOPHILS % (AUTO) 2.1 % (0-6); HEMATOCRIT 29.2 % (35.0-45.0); LYMPHOCYTES # (AUTO) 1.3 X10'3 (1.1-4.8); LYMPHOCYTES % (AUTO) 20.9 % (21-51); MEAN CORPUSCULAR HEMOGLOBIN 29.3 PG (27.0-31.0); MEAN CORPUSCULAR HGB CONC 34.2 g/dL (33.0-36.5); MEAN CORPUSCULAR VOLUME 85.7 FL (78-98); MEAN PLATELET VOLUME 8.2 FL (7.4-10.4); MONOCYTES # (AUTO) 0.4 X10'3 (0-0.9); MONOCYTES % (AUTO) 6.7 % (2-12); NEUTROPHILS # (AUTO) 4.3 X10'3 (1.8-7.7); NEUTROPHILS % (AUTO) 69.6 % (42-75); PLATELET COUNT 176 X10'3 (140-440); RED CELL DISTRIBUTION WIDTH 15.3 % (11.5-14.5); WHITE BLOOD COUNT 6.2 X10'3 (4.5-11.0)
[2024-01-30 07:02] LABS: ALANINE AMINOTRANSFERASE 12 U/L (12-78); ALBUMIN 2.4 G/DL (3.4-5.0); ALBUMIN/GLOBULIN RATIO 0.7 (1.1-1.5); ALKALINE PHOSPHATASE 44 IU/L (46-116); ANION GAP 6 (8-16); ASPARTATE AMINO TRANSFERASE 22 U/L (10-37); BILIRUBIN,TOTAL 0.9 MG/DL (0.1-1.0); BLOOD UREA NITROGEN 5 MG/DL (7-18); BUN/CREATININE RATIO 6.8 (10.0-20.0); CHLORIDE 109 MMOL/L (99-107); CREATININE 0.73 MG/DL (0.40-0.90); GLUCOSE 198 MG/DL (70-104); POTASSIUM 3.1 MMOL/L (3.5-5.1); SODIUM 141 MMOL/L (135-145); TOTAL CARBON DIOXIDE 25.8 MMOL/L (24-32); TOTAL PROTEIN 5.7 G/DL (6.4-8.2); eCRCL 49 ML/MIN; eGFR 75 ML/MIN
[2024-01-30] MEDS ORDERED: carVEDilol 3.125mg tablet PO SCH (08:00)
[2024-01-30] MEDS ORDERED: potassium Cl 40MEQ/1/2NS 520ml 520 ML IV PRN (11:50)
[2024-01-30] MEDS ORDERED: potassium Cl 20 mEq SR tablet PO PRN ×2 (11:50)
[2024-01-30] MEDS: potassium Cl 40MEQ/1/2NS 520ml 520 ML IV PRN (14:00)
[2024-01-30] MEDS: K and/or MAG REPLACEMENT MC SCH (19:36)
[2024-01-31 03:29] VITALS: BP 112/37; PULSE 71; RESP 20; TEMP 98.7; O2SAT 99
[2024-01-31 06:59] LABS: BASOPHILS % (AUTO) 0.5 % (0-1); EOSINOPHILS # (AUTO) 0.2 X10'3 (0-0.9); HEMOGLOBIN 10.9 g/dl (12.0-16.0); LYMPHOCYTES # (AUTO) 1.9 X10'3 (1.1-4.8); LYMPHOCYTES % (AUTO) 24.9 % (21-51); MEAN CORPUSCULAR HEMOGLOBIN 29.3 PG (27.0-31.0); MEAN CORPUSCULAR HGB CONC 33.9 g/dL (33.0-36.5); MEAN CORPUSCULAR VOLUME 86.5 FL (78-98); MEAN PLATELET VOLUME 8.3 FL (7.4-10.4); MONOCYTES # (AUTO) 0.6 X10'3 (0-0.9); MONOCYTES % (AUTO) 8.2 % (2-12); NEUTROPHILS # (AUTO) 4.7 X10'3 (1.8-7.7); NEUTROPHILS % (AUTO) 63.4 % (42-75); PLATELET COUNT 213 X10'3 (140-440); RED CELL DISTRIBUTION WIDTH 15.4 % (11.5-14.5); WHITE BLOOD COUNT 7.4 X10'3 (4.5-11.0)
[2024-01-31 07:00] VITALS: BP 109/54; PULSE 59; RESP 20; TEMP 98.3; O2SAT 98
[2024-01-31 07:08] LABS: ALANINE AMINOTRANSFERASE 15 U/L (12-78); ALBUMIN 2.6 G/DL (3.4-5.0); ALBUMIN/GLOBULIN RATIO 0.7 (1.1-1.5); ALKALINE PHOSPHATASE 48 IU/L (46-116); ANION GAP 7 (8-16); ASPARTATE AMINO TRANSFERASE 32 U/L (10-37); BILIRUBIN,TOTAL 0.9 MG/DL (0.1-1.0); BLOOD UREA NITROGEN 3 MG/DL (7-18); BUN/CREATININE RATIO 4.2 (10.0-20.0); CALCIUM 8.2 MG/DL (8.5-10.1); CHLORIDE 110 MMOL/L (99-107); CREATININE 0.71 MG/DL (0.40-0.90); GLUCOSE 150 MG/DL (70-104); POTASSIUM 3.4 MMOL/L (3.5-5.1); SODIUM 142 MMOL/L (135-145); TOTAL PROTEIN 6.2 G/DL (6.4-8.2); eCRCL 50 ML/MIN; eGFR 78 ML/MIN
[2024-01-31 08:00] VITALS: RESP 18; O2SAT 98
[2024-01-31 11:36] VITALS: BP 101/55; PULSE 84; RESP 16; TEMP 97.5; O2SAT 98
[2024-01-31] MEDS ORDERED: POTA-207 PO (11:45)
[2024-01-31] MEDS ORDERED: GLYB1.5T2 PO (20:22)
== END 2024-01-31 13:22 | disposition home health service (06) | DRG 871 ==
LOC: ER 14:11 → ED HOLD 20:04 → UNDOADMIN 20:04 → ED HOLD 20:59 → EDBEDREQ 21:58 → ED HOLD 22:55 → SUR 3N 22:55 → PCU 3S 01-27 00:50
PROVIDERS: ADMIT Student in an Organized Health Care Education/Training Program; ATTEND Family Medicine
DX: A41.89 Other specified sepsis (principal); I21.4 Non-ST elevation (NSTEMI) myocardial infarction; N17.0 Acute kidney failure with tubular necrosis; E87.20 Acidosis, unspecified; I50.22 Chronic systolic (congestive) heart failure; I25.110 Atherosclerotic heart disease of native coronary artery with unstable angina pectoris; I67.81 Acute cerebrovascular insufficiency; E86.0 Dehydration; I11.0 Hypertensive heart disease with heart failure; E11.9 Type 2 diabetes mellitus without complications; E78.5 Hyperlipidemia, unspecified; I34.0 Nonrheumatic mitral (valve) insufficiency; E87.6 Hypokalemia; A08.4 Viral intestinal infection, unspecified; N28.1 Cyst of kidney, acquired; K59.00 Constipation, unspecified; I25.5 Ischemic cardiomyopathy; D64.9 Anemia, unspecified; Z88.2 Allergy status to sulfonamides; Z88.8 Allergy status to other drugs, medicaments and biological substances; I25.2 Old myocardial infarction; Z88.6 Allergy status to analgesic agent; Z91.041 Radiographic dye allergy status; Z88.0 Allergy status to penicillin; Z91.013 Allergy to seafood; Z90.49 Acquired absence of other specified parts of digestive tract; Z95.5 Presence of coronary angioplasty implant and graft
CPT/HCPCS: 36415; 36600; 74176; 80048; 80053; 80076; 81001; 82570; 82803; 82948; 83036; 83605; 83690; 83735; 84133; 84145; 84156; 84300; 84443; 84484; 85018; 85025; 85610; 85730; 86140; 87040; 87045; 87046; 87081; 87324; 87449; 93005; 93306; 97116; 97161; 97530; 99285; A4615; A6258; A6449; C9113; G0378; J0696; J1200; J1644; J1815; J1956; J2270; J2405; J2765; J3480; J3490; J7030; J7070

== ENCOUNTER 2024-02-08 09:38 | Outpatient (CLI) | payer MEDICARE, MEDICAID ==
[~2024-02-08 09:38] MED LIST changes: +GLYB1.5T2 PO; -LISI10TA27 PO; -LOP12.5T PO; +POTA-207 PO
[2024-02-08 10:48] LABS: ALBUMIN 2.9 G/DL (3.4-5.0); ANION GAP 9 (8-16); BLOOD UREA NITROGEN 11 MG/DL (7-18); BUN/CREATININE RATIO 12.5 (10.0-20.0); CALCIUM 8.8 MG/DL (8.5-10.1); CHLORIDE 101 MMOL/L (99-107); CREATININE 0.88 MG/DL (0.40-0.90); GLUCOSE 206 MG/DL (70-104); POTASSIUM 3.8 MMOL/L (3.5-5.1); SODIUM 137 MMOL/L (135-145); TOTAL CARBON DIOXIDE 26.8 MMOL/L (24-32); eGFR 61 ML/MIN
== END 2024-02-08 23:59 | disposition home or self-care (01) ==
LOC: LAB 09:38
PROVIDERS: ATTEND Family Medicine
DX: E87.6 Hypokalemia (principal)
CPT/HCPCS: 36415; 80048

== ENCOUNTER 2024-02-21 03:31 | Inpatient (IN) | payer MEDICARE, MEDICAID ==
[~2024-02-21] VITALS: Ht 152.4 cm; Wt 82.2 kg
[~2024-02-21 03:31] MED LIST changes: -ROSU5TAB12 PO; +ROSU5TAB43 PO
[2024-02-21] MEDS: nitroGLYCERIN 0.4mg SUBLingual tab SL ONE (04:12)
[2024-02-21] MEDS: ondansetron/PF 4mg/2ml inj IV ONE (04:21)
[2024-02-21 04:27] LABS: BASOPHILS # (AUTO) 0.1 X10'3 (0-0.2); BASOPHILS % (AUTO) 0.8 % (0-1); EOSINOPHILS # (AUTO) 0.2 X10'3 (0-0.9); EOSINOPHILS % (AUTO) 2.3 % (0-6); HEMATOCRIT 37.2 % (35.0-45.0); HEMOGLOBIN 12.5 g/dl (12.0-16.0); LYMPHOCYTES # (AUTO) 1.7 X10'3 (1.1-4.8); LYMPHOCYTES % (AUTO) 23.9 % (21-51); MEAN CORPUSCULAR HEMOGLOBIN 29.1 PG (27.0-31.0); MEAN CORPUSCULAR HGB CONC 33.7 g/dL (33.0-36.5); MEAN CORPUSCULAR VOLUME 86.3 FL (78-98); MEAN PLATELET VOLUME 7.8 FL (7.4-10.4); MONOCYTES # (AUTO) 0.5 X10'3 (0-0.9); MONOCYTES % (AUTO) 6.7 % (2-12); NEUTROPHILS # (AUTO) 4.7 X10'3 (1.8-7.7); NEUTROPHILS % (AUTO) 66.3 % (42-75); PLATELET COUNT 254 X10'3 (140-440); RED BLOOD COUNT 4.31 X10'6 (4.20-5.60); RED CELL DISTRIBUTION WIDTH 15.6 % (11.5-14.5); WHITE BLOOD COUNT 7.1 X10'3 (4.5-11.0)
[2024-02-21 05:00] LABS: ALBUMIN 3.4 G/DL (3.4-5.0); ANION GAP 11 (8-16); BLOOD UREA NITROGEN 18 MG/DL (7-18); BUN/CREATININE RATIO 24.3 (10.0-20.0); CALCIUM 9.5 MG/DL (8.5-10.1); CHLORIDE 106 MMOL/L (99-107); CREATININE 0.74 MG/DL (0.40-0.90); GLUCOSE 157 MG/DL (70-104); POTASSIUM 4.1 MMOL/L (3.5-5.1); PRO BRAIN NATRIURETIC PEPTIDE 2440 PG/ML (0-450); SODIUM 141 MMOL/L (135-145); TOTAL CARBON DIOXIDE 23.7 MMOL/L (24-32); eCRCL 38 ML/MIN; eGFR 74 ML/MIN
[2024-02-21 05:30] LABS: BILIRUBIN,URINE NEGATIVE (Neg); CLARITY,URINE CLEAR (Clear); COLOR,URINE YELLOW (Yellow); GLUCOSE, URINE NEGATIVE (Neg); KETONES,URINE NEGATIVE (Neg); LEUKOCYTE ESTERASE ,URINE NEGATIVE (Neg); NITRITES, URINE NEGATIVE (Neg); OCCULT BLOOD,URINE TRACE-INTACT (Neg); PROTEIN,URINE NEGATIVE (Neg); UROBILINOGEN,URINE 0.2 E.U/dL (0.2-1.0)
[2024-02-21] MEDS ORDERED: acetaminophen 325mg tablet PO PRN (06:00)
[2024-02-21] MEDS ORDERED: magnesium 2GM in 50ml NS 50 ML IV PRN (06:00)
[2024-02-21] MEDS ORDERED: magnesium hydroxide 30ml (MOM) UD suspension PO PRN (06:00)
[2024-02-21] MEDS ORDERED: potassium Cl 40MEQ/1/2NS 520ml 520 ML IV PRN (06:00)
[2024-02-21] MEDS ORDERED: ondansetron 4mg rapidly disintigrating tab PO PRN (06:00)
[2024-02-21] MEDS ORDERED: magnesium Cl slow-release 64mg tablet PO PRN (06:00)
[2024-02-21] MEDS ORDERED: magnesium 4gm in 100ml NS 100 ML IV PRN (06:00)
[2024-02-21] MEDS ORDERED: morphine 2 MG/ML inj. syringe IV PRN (06:00)
[2024-02-21] MEDS ORDERED: potassium Cl 20 mEq SR tablet PO PRN ×2 (06:00)
[2024-02-21 06:48] LABS: APTT 25 SECONDS (22-32); D-DIMER 8.04 MG/L FEU (0-0.50); INR 1.1 INR; PROTHROMBIN TIME 11.8 SECONDS (9.0-12.0)
[2024-02-21] MEDS: INSULIN LISPRO 100 UNIT/ML INSULN.PEN MULTI-DOSE SQ SCH ×2 (07:00→09:00)
[2024-02-21 07:07] LABS: UA COLLECTION TYPE VOIDED
[2024-02-21 07:08] LABS: BACTERIA,URINE NONE SEEN /HPF (Neg); MUCUS STRANDS NONE SEEN /LPF (Neg); RBC,URINE 0-2 /HPF (0-2); SQUAMOUS EPITHELIAL CELL,UR FEW /LPF (FEW); WBC,URINE 0-4 /HPF (0-4)
[2024-02-21 07:22] LABS: MAGNESIUM 1.8 MG/DL (1.5-2.4)
[2024-02-21] MEDS: pantoprazole 40 MG vial IV SCH (07:47)
[2024-02-21] MEDS: aspirin 81mg tab.chew PO SCH (07:47)
[2024-02-21] MEDS: isosorbide mononitrate 30mg tab.SR.24H PO SCH (07:48)
[2024-02-21] MEDS: docusate sod 100mg capsule PO SCH (07:48)
[2024-02-21] MEDS: heparin, porcine 5000 units/ml vial SQ SCH (07:49)
[2024-02-21] MEDS ORDERED: potassium Cl 20 mEq SR tablet PO SCH (08:00)
[2024-02-21] MEDS: K and/or MAG REPLACEMENT MC SCH (08:00)
[2024-02-21] MEDS ORDERED: POTASSIUM CHLORIDE 20 MEQ/15 ML oral solution PO PRN ×2 (08:10)
[2024-02-21] MEDS: ROSUVASTATIN CALCIUM 5 MG TABLET PO SCH (08:39)
[2024-02-21] MEDS: ticagrelor 90mg tablet PO SCH (08:39)
[2024-02-21] MEDS ORDERED: heparin 25,000 UNIT/250ml bag 250 ML IV PRN (08:40)
[2024-02-21] MEDS ORDERED: heparin 10,000 units/1 ML INJ IV PRN (08:40)
[2024-02-21] MEDS: heparin 10,000 units/1 ML INJ IV ONE (08:40)
[2024-02-21 08:58] LABS: BASOPHILS % (AUTO) 0.5 % (0-1); EOSINOPHILS # (AUTO) 0.1 X10'3 (0-0.9); EOSINOPHILS % (AUTO) 1.2 % (0-6); HEMATOCRIT 37.5 % (35.0-45.0); HEMOGLOBIN 12.1 g/dl (12.0-16.0); LYMPHOCYTES # (AUTO) 1.6 X10'3 (1.1-4.8); LYMPHOCYTES % (AUTO) 20.7 % (21-51); MEAN CORPUSCULAR HEMOGLOBIN 28.4 PG (27.0-31.0); MEAN CORPUSCULAR HGB CONC 32.4 g/dL (33.0-36.5); MEAN CORPUSCULAR VOLUME 87.7 FL (78-98); MEAN PLATELET VOLUME 8.1 FL (7.4-10.4); MONOCYTES # (AUTO) 0.5 X10'3 (0-0.9); MONOCYTES % (AUTO) 6.3 % (2-12); NEUTROPHILS # (AUTO) 5.5 X10'3 (1.8-7.7); NEUTROPHILS % (AUTO) 71.3 % (42-75); PLATELET COUNT 242 X10'3 (140-440); RED BLOOD COUNT 4.27 X10'6 (4.20-5.60); WHITE BLOOD COUNT 7.7 X10'3 (4.5-11.0)
[2024-02-21] MEDS: MESSAGE TO NURSING IV ONE ×2 (09:15→19:00)
[2024-02-21] MEDS ORDERED: iohexol 350MG/ML 100ml bottle IV ONE (09:41)
[2024-02-21 09:44] VITALS: BP 120/65; PULSE 75; RESP 19; TEMP 97.9; O2SAT 100
[2024-02-21] MEDS: heparin 25,000 UNIT/250ml bag 250 ML IV PRN (11:39)
[2024-02-21 15:00] VITALS: BP 106/47; PULSE 72; RESP 19; TEMP 97.9; O2SAT 100
[2024-02-21 18:00] VITALS: BP 129/55; PULSE 72; RESP 18; TEMP 97.7; O2SAT 99
[2024-02-21] MEDS: insulin glargine (Lantus) pen - multi-dose SQ SCH (21:23)
[2024-02-21] MEDS: metoprolol tartrate 12.5mg (1/2 tablet) PO SCH (21:25)
[2024-02-21 22:00] VITALS: BP 126/55; PULSE 69; RESP 16; TEMP 97.9; O2SAT 99
[2024-02-22] VITALS (9 sets, daily range): BP systolic 99–138; BP diastolic 45–68; PULSE 62–65; RESP 14–16; TEMP 97.1–98.3; O2SAT 98–100
[2024-02-22] MEDS: MESSAGE TO NURSING IV ONE ×4 (01:11→19:10)
[2024-02-22 04:45] LABS: BASOPHILS % (AUTO) 0.6 % (0-1); EOSINOPHILS # (AUTO) 0.2 X10'3 (0-0.9); EOSINOPHILS % (AUTO) 3.4 % (0-6); HEMATOCRIT 35.3 % (35.0-45.0); HEMOGLOBIN 11.6 g/dl (12.0-16.0); LYMPHOCYTES # (AUTO) 1.9 X10'3 (1.1-4.8); LYMPHOCYTES % (AUTO) 28.7 % (21-51); MEAN CORPUSCULAR HEMOGLOBIN 28.8 PG (27.0-31.0); MEAN CORPUSCULAR HGB CONC 32.7 g/dL (33.0-36.5); MEAN CORPUSCULAR VOLUME 88.1 FL (78-98); MEAN PLATELET VOLUME 7.7 FL (7.4-10.4); MONOCYTES # (AUTO) 0.5 X10'3 (0-0.9); MONOCYTES % (AUTO) 7.5 % (2-12); NEUTROPHILS # (AUTO) 3.9 X10'3 (1.8-7.7); NEUTROPHILS % (AUTO) 59.8 % (42-75); PLATELET COUNT 217 X10'3 (140-440); RED BLOOD COUNT 4.01 X10'6 (4.20-5.60); RED CELL DISTRIBUTION WIDTH 15.7 % (11.5-14.5); WHITE BLOOD COUNT 6.6 X10'3 (4.5-11.0)
[2024-02-22 04:56] LABS: ALANINE AMINOTRANSFERASE 20 U/L (12-78); ALBUMIN/GLOBULIN RATIO 0.8 (1.1-1.5); ALKALINE PHOSPHATASE 60 IU/L (46-116); ANION GAP 10 (8-16); ASPARTATE AMINO TRANSFERASE 16 U/L (10-37); BILIRUBIN,TOTAL 1.8 MG/DL (0.1-1.0); BLOOD UREA NITROGEN 14 MG/DL (7-18); BUN/CREATININE RATIO 16.1 (10.0-20.0); CALCIUM 8.9 MG/DL (8.5-10.1); CHLORIDE 106 MMOL/L (99-107); CREATININE 0.87 MG/DL (0.40-0.90); GLUCOSE 107 MG/DL (70-104); MAGNESIUM 1.8 MG/DL (1.5-2.4); PHOSPHORUS 5.2 MG/DL (2.3-4.5); POTASSIUM 4.8 MMOL/L (3.5-5.1); SODIUM 139 MMOL/L (135-145); TOTAL CARBON DIOXIDE 23.5 MMOL/L (24-32); TOTAL PROTEIN 6.9 G/DL (6.4-8.2); eCRCL 33 ML/MIN; eGFR 62 ML/MIN
[2024-02-22] MEDS: mag hydrox/Alum hydrox/simeth 30ml oral suspension PO PRN (05:17)
[2024-02-22] MEDS: levoTHYROXINE 88mcg tablet PO SCH (07:36)
[2024-02-22] MEDS: POTASSIUM CHLORIDE 20 MEQ/15 ML oral solution PO SCH (07:39)
[2024-02-22] MEDS: acetaminophen 325mg tablet PO PRN (22:22)
[2024-02-23 02:00] VITALS: BP 124/45; PULSE 63; RESP 15; TEMP 98.4; O2SAT 100
[2024-02-23 02:03] VITALS: RESP 14; O2SAT 100
[2024-02-23 02:17] LABS: BASOPHILS % (AUTO) 0.7 % (0-1); EOSINOPHILS # (AUTO) 0.2 X10'3 (0-0.9); EOSINOPHILS % (AUTO) 3.6 % (0-6); HEMATOCRIT 31.3 % (35.0-45.0); HEMOGLOBIN 10.5 g/dl (12.0-16.0); LYMPHOCYTES % (AUTO) 30.3 % (21-51); MEAN CORPUSCULAR HEMOGLOBIN 29.2 PG (27.0-31.0); MEAN CORPUSCULAR HGB CONC 33.6 g/dL (33.0-36.5); MEAN PLATELET VOLUME 7.8 FL (7.4-10.4); MONOCYTES # (AUTO) 0.5 X10'3 (0-0.9); MONOCYTES % (AUTO) 7.8 % (2-12); NEUTROPHILS # (AUTO) 3.7 X10'3 (1.8-7.7); NEUTROPHILS % (AUTO) 57.6 % (42-75); PLATELET COUNT 208 X10'3 (140-440); RED CELL DISTRIBUTION WIDTH 15.9 % (11.5-14.5); WHITE BLOOD COUNT 6.5 X10'3 (4.5-11.0)
[2024-02-23 02:32] LABS: ALANINE AMINOTRANSFERASE 22 U/L (12-78); ALBUMIN 2.8 G/DL (3.4-5.0); ALBUMIN/GLOBULIN RATIO 0.8 (1.1-1.5); ALKALINE PHOSPHATASE 62 IU/L (46-116); ANION GAP 5 (8-16); ASPARTATE AMINO TRANSFERASE 15 U/L (10-37); BILIRUBIN,TOTAL 1.5 MG/DL (0.1-1.0); BLOOD UREA NITROGEN 17 MG/DL (7-18); BUN/CREATININE RATIO 20.7 (10.0-20.0); CALCIUM 8.5 MG/DL (8.5-10.1); CHLORIDE 108 MMOL/L (99-107); CREATININE 0.82 MG/DL (0.40-0.90); GLUCOSE 139 MG/DL (70-104); MAGNESIUM 1.7 MG/DL (1.5-2.4); PHOSPHORUS 4.3 MG/DL (2.3-4.5); POTASSIUM 4.5 MMOL/L (3.5-5.1); SODIUM 140 MMOL/L (135-145); TOTAL CARBON DIOXIDE 26.9 MMOL/L (24-32); TOTAL PROTEIN 6.5 G/DL (6.4-8.2); eCRCL 35 ML/MIN; eGFR 66 ML/MIN
[2024-02-23] MEDS: MESSAGE TO NURSING IV ONE ×2 (02:57→10:34)
[2024-02-23 06:00] VITALS: BP 124/50; PULSE 60; RESP 16; TEMP 97.5; O2SAT 100
[2024-02-23 08:00] VITALS: RESP 16; O2SAT 100
[2024-02-23] MEDS: nitroGLYCERIN 0.4mg SUBLingual tab SL PRN (08:03)
[2024-02-23 08:20] VITALS: PULSE 65
[2024-02-23] MEDS: EMPAGLIFLOZIN 10 MG TABLET PO SCH (08:20)
[2024-02-23 11:00] VITALS: BP 125/47; RESP 18; TEMP 97.6; O2SAT 100
[2024-02-23] MEDS ORDERED: TICA90TA PO (12:37)
[2024-02-23] MEDS ORDERED: LOP12.5T PO (12:38)
== END 2024-02-23 14:02 | disposition home health service (06) | DRG 281 ==
LOC: ER 03:32 → ED HOLD 06:02 → PCU 3S 09:29
PROVIDERS: ADMIT Family Medicine; ATTEND Family Medicine
PROC: B32T1ZZ Computerized Tomography (CT Scan) of Left Pulmonary Artery using Low Osmolar Contrast (ICD-10-PCS; principal; 2024-02-21)
PROC: B3201ZZ Computerized Tomography (CT Scan) of Thoracic Aorta using Low Osmolar Contrast (ICD-10-PCS; 2024-02-21)
PROC: B32S1ZZ Computerized Tomography (CT Scan) of Right Pulmonary Artery using Low Osmolar Contrast (ICD-10-PCS; 2024-02-21)
DX: I21.4 Non-ST elevation (NSTEMI) myocardial infarction (principal); I50.32 Chronic diastolic (congestive) heart failure; E11.9 Type 2 diabetes mellitus without complications; I11.0 Hypertensive heart disease with heart failure; I25.110 Atherosclerotic heart disease of native coronary artery with unstable angina pectoris; I44.7 Left bundle-branch block, unspecified; I25.5 Ischemic cardiomyopathy; Z66 Do not resuscitate; E78.5 Hyperlipidemia, unspecified; Z88.5 Allergy status to narcotic agent; Z88.2 Allergy status to sulfonamides; Z88.0 Allergy status to penicillin; Z88.8 Allergy status to other drugs, medicaments and biological substances; Z91.041 Radiographic dye allergy status; Z91.013 Allergy to seafood; Z79.84 Long term (current) use of oral hypoglycemic drugs; Z79.82 Long term (current) use of aspirin; Z79.899 Other long term (current) drug therapy; Z95.5 Presence of coronary angioplasty implant and graft; Z90.49 Acquired absence of other specified parts of digestive tract; Z99.81 Dependence on supplemental oxygen
CPT/HCPCS: 36415; 71045; 71275; 80048; 80053; 81001; 82948; 83605; 83735; 83880; 84100; 84145; 84484; 85025; 85379; 85610; 85730; 87040; 93005; 96374; 99285; C9113; G0378; J1644; J1815; J2405; Q9967

== ENCOUNTER 2025-06-05 11:59 | Day surgery (SDC) | payer MEDICARE, MEDICAID ==
[2025-06-01 13:20] LABS: MEAN PLATELET VOLUME 8.3 FL (7.4-10.4)
[2025-06-01 13:22] LABS: RED CELL DISTRIBUTION WIDTH 15.5 % (11.5-14.5)
[2025-06-01 13:29] LABS: APTT 22 SECONDS (22-32); INR 1.1 INR
[2025-06-01 13:32] LABS: CHOL/HDL RATIO 3.0 (0.00-4.99); CREATININE 0.90 MG/DL (0.40-0.90); LDL CHOLESTEROL 61 MG/DL (50-100); TOTAL CARBON DIOXIDE 27.9 MMOL/L (24-32); eGFR 59 ML/MIN
[~2025-06-05] VITALS: Ht 144.8 cm; Wt 81.0 kg
[2025-06-05] VITALS (11 sets, daily range): BP systolic 117–132; BP diastolic 49–69; PULSE 59–85; RESP 12–18; TEMP 97.2; O2SAT 92–98
[~2025-06-05 11:59] MED LIST changes: +ASPI-1265 PO; -ASPI81TA53 PO; +DAPA10TA PO; +DOCU100C40 PO; +FURO-150 PO; -ISOS30TA84 PO; +ISOS60TA71 PO; +LACT1CAP26 PO; +MONT-48 PO; +PANT40TA54 PO; -ROSU5TAB43 PO; +ROSU5TAB51 PO; +SACU1TAB PO; +SPIR25TA5 PO; +SUCR1TAB PO; -TICA90TA PO
--- NOTE | 2025-06-05 12:54 | ELECTROCARDIOGRAPH REPORT ---
[facility] Test Date: 2025-06-05 Test Time: 12:52:03 Pat Name: FREDDIE PYLE Department: SHORT STAY 1ST FLOOR Patient ID: [id number] Room: Gender: F Commissioning Specialist: MAXI : [id number] Requested By: SARA EMMANUEL Order Number: [id number] Reading MD: Dr. LOUISA Oliveira Measurements Intervals [place] Rate: 85 P: 79 SC: 164 QRS: 0 QRSD: 162 T: 171 QT: 406 QTc: 483 Interpretive Statements Sinus rhythm Left bundle branch block Electronically Signed On 06-05-2025 16:30:[address] LOUISA Oliveira Please click the below link to view image of tracing.
[2025-06-05] MEDS ORDERED: voltaren gel (13:17)
[2025-06-05] MEDS ORDERED: ONDA-245 PO (13:17)
[2025-06-05] MEDS ORDERED: ACET-890 PO (13:17)
[2025-06-05] MEDS ORDERED: DIPH25TA27 PO (13:17)
[2025-06-05] MEDS ORDERED: PRED20TA PO (13:17)
[2025-06-05] MEDS ORDERED: FLUT30CR TOP (13:17)
[2025-06-05] MEDS ORDERED: B12 (13:17)
[2025-06-05] MEDS ORDERED: [UNRECOGNIZED DRUG - OTHER] (13:17)
[2025-06-05] MEDS ORDERED: LACT10SO67 (13:17)
[2025-06-05] MEDS ORDERED: fentaNYL/PF 50MCG/1 ML 2ML syringe ONE (14:40)
[2025-06-05] MEDS ORDERED: LIDOcaine 1% 30ml preserv. free vial ONE (14:40)
[2025-06-05] MEDS ORDERED: verapamil 2.5 mg/ml inj IV ONE (14:40)
[2025-06-05] MEDS ORDERED: midazolam 1 mg/ML 2ml injection ONE (14:40)
[2025-06-05] MEDS ORDERED: heparin 1,000unit/ml 10ml vial 10 ML ONE (14:41)
[2025-06-05] MEDS ORDERED: nitroGLYCERIN 500mcg/5mL D5W 5 ML IV ONE (14:58)
[2025-06-05] MEDS ORDERED: clopidogrel 300mg tablet ONE (15:28)
--- NOTE | 2025-06-05 19:29 | CARDIAC CATH REPORT ---
Cardiac Cath Report Providers to CC CC: LINN EMMANUEL MD Procedure Comments: 1. Left Heart Catheterization 2. Selective Coronary Angiography 3. Percutaneous Coronary Intervention of the Obtuse Marginal Artery x 1 4. Right Radial Artery Access Brief History/Indications: 89yo woman with HTN, HLD, DM, HFrEF, CAD(s/p PCI OM1) recently admitted, found to have NSTEMI, however, refused LHC. Later reported episodes of jaw pains so referred for evaluation. Techniques: After informed consent was obtained, the patient was brought to the cardiac catheterization laboratory and prepped and draped in usual sterile fashion for left heart catheterization and other procedures mentioned above. The right wrist was anesthetized with 1% Lidocaine and the right radial artery accessed via the Seldinger technique after which a 6Fr sheath was placed. Through this a TIG was used to engage the left ventricle, the right coronary artery, and JL 3.5 to engage the left coronary artery. See below for interventional procedure details. At the conclusion of the case the sheath was removed and hemostasis obtained with a VascBand. Findings Findings: HEMODYNAMICS: LV: 102/2 mmHg LVEDP: 4 mmHg Ao: 100/43, MAP 66 mmHg CORONARY ARTERIES: Lt Dominant LMCA: Luminal Irregularities LAD: Diffusely diseased mid to distal LAD, up to 80%. D1: Luminal Irregularities D2: Ostial 30% stenosis LCx: Ostial 40% stenosis OM1: 100% occluded with Lt-Lt collaterals OM2: Luminal Irregularities RCA: Non-dominant, 100% occluded after the proximal portion PERCUTANEOUS CORONARY INTERVENTION of the OM: An XBC3 guide was used to engage the left coronary artery. The OM lesion was crossed with a Choice PT wire. Attempted to advance a 2.0x8mm balloon, however, unable to do so. Also attempted a 1.5x6mm Takeru, however, unable to advance past area of stenosis. Given such, decided not to proceed with intervention. Repeat angiography without evidence of dissection. Results Results: 1. Severe crow vessel CAD with 100% occluded RCA, 100% occluded ostial OM1(ISR of previous stent), Diffusely diseased mid-distal LAD. RCA/LAD appeared similar to 2022, culprit of recent NSTEMI thought to be the OM1 stent. 2. Attempted PCI of the OM1, however, unable to pass 1.5x6mm Takeru or 2.0x8mm balloon. Given such and Lt-Lt collaterals, decided to abort futher attempts. 3. RRA Access, closed with VascBand RECOMMENDATIONS: 1. Incr Imdur to 60mg BID 2. Cont uptitration of max-tolerated GDMT SARA EMMANUEL MD Jun 05, 2025 19:28
== END 2025-06-05 19:05 | disposition home or self-care (01) ==
LOC: SSTAY O 11:59
PROVIDERS: ATTEND Student in an Organized Health Care Education/Training Program
DX: I21.4 Non-ST elevation (NSTEMI) myocardial infarction (principal); I25.10 Atherosclerotic heart disease of native coronary artery without angina pectoris; I44.7 Left bundle-branch block, unspecified; I11.0 Hypertensive heart disease with heart failure; I50.9 Heart failure, unspecified; E11.9 Type 2 diabetes mellitus without complications; E78.00 Pure hypercholesterolemia, unspecified; I42.9 Cardiomyopathy, unspecified; Z88.0 Allergy status to penicillin; Z88.2 Allergy status to sulfonamides; Z88.5 Allergy status to narcotic agent; Z91.041 Radiographic dye allergy status
CPT/HCPCS: 36415; 80048; 80061; 82948; 83695; 85025; 85610; 85730; 92920; 93005; 93458; 99152; 99153; A6258; A6402; C1725; C1751; C1769; C1894; J1644; J2003; J2250; J3010; J3490; J7030; Q9967; C9607

== ENCOUNTER 2025-08-21 08:28 | Outpatient (CLI) | payer MEDICARE, MEDICAID ==
[~2025-08-21 08:28] MED LIST changes: +ACET-890 PO; +B12; -DOCU100C40 PO; +GABA-530 PO; +LACT10SO67; -LACT1CAP26 PO; +ONDA-245 PO; -POTA-207 PO; +POTA40LI16; -SACU1TAB PO; +SACU1TAB7 PO; +[UNRECOGNIZED DRUG - OTHER]; +iohexol 350 MG/ML 50ML vial IV ONE; +voltaren gel
--- NOTE | 2025-08-21 11:36 | RADIOLOGY REPORT ---
EXAM: CT CTA ABDOMEN LOWER EXTR RUNOFF History: UNSP ATHSCL [place] ARTERIES OF EXTREMITIES, BILATERAL LEGS COMPARISON: CT ABDOMEN PELVIS on DOS: 12/22/18 TECHNIQUE: Multidetector spiral CT of the abdomen and pelvis was performed from lung bases to pubic symphysis. Intravenous contrast was administered during this examination. Arterial imaging was obtained. Axial, coronal and sagittal multiplanar reformats were performed by the technologist on a separate workstation. Radiation Dose : 1. Abdomen/Pelvis: CTDIvol 12.6 mGy, DLP 1605.7 mGy*cm. CONTRAST: Type of contrast: Omnipaque 350 Contrast injected: 120 ml FINDINGS: VASCULAR FINDINGS Abdominal aorta is normal diameter. No dissection or aneurysm. Atherosclerotic luminal narrowing of the origin of the right renal artery. Mesenteric vessel origins otherwise widely patent. Moderate atherosclerotic plaque throughout the abdomen and pelvis. Right common and external iliac arteries are patent. Common femoral and SFA are patent. Moderate to severe irregular narrowing of the proximal popliteal. Anterior tibial is patent into the foot. Tibioperoneal trunk is patent. Posterior tibial and peroneal are patent into the ankle/foot. Left common and external iliac are patent. Common femoral is patent. High-grade stenosis of the proximal SFA which appears occluded at its midportion. Popliteal is occluded proximally with faint opacification of the mid and distal portions. Anterior tibial appears patent. Tibioperoneal trunk appears severely stenotic or occluded with faint opacification of the peroneal and posterior tibial arteries. NONVASCULAR FINDINGS Liver, biliary tree, spleen, pancreas, and adrenal glands are unremarkable. Previous cholecystectomy. Renal cysts. Urinary bladder is unremarkable. Pelvic structures unremarkable. Few scattered colonic diverticula. Otherwise GI tract is unremarkable. No significant free fluid. No lymphadenopathy. Soft tissues are clear. Lung bases are clear. No suspect bone lesions. IMPRESSION: High-grade stenosis of the proximal left SFA with occlusion of the midportion. Left popliteal is occluded proximally with faint opacification of the mid and distal portions. Left tibioperoneal trunk appears severely stenotic or occluded with faint opacification of the peroneal and posterior tibial arteries. Moderate to severe irregular narrowing of the proximal right popliteal. Radiation optimization: All CT scans at this facility use at least one of these dose optimization techniques: automated exposure control mA and/or kV adjustment per patient size (includes targeted exams where dose is matched to clinical indication) or iterative reconstruction.
== END 2025-08-21 23:59 | disposition home or self-care (01) ==
LOC: 64 CT 08:28
PROVIDERS: ATTEND Internal Medicine Interventional Cardiology
DX: I70.203 Unspecified atherosclerosis of native arteries of extremities, bilateral legs (principal); I77.89 Other specified disorders of arteries and arterioles; E78.5 Hyperlipidemia, unspecified; I25.118 Atherosclerotic heart disease of native coronary artery with other forms of angina pectoris; I70.0 Atherosclerosis of aorta; I70.1 Atherosclerosis of renal artery; I74.8 Embolism and thrombosis of other arteries
CPT/HCPCS: 75635; Q9967